=== PATIENT | male | born 1985 | race Caucasian/White ===

== ENCOUNTER 2025-02-26 00:39 | Inpatient (IN) ==
[2025-02-26 01:39] LABS: Appearance Urine Clear (Clear); Bacteria Urine Automated None Seen (None Seen); Cast Urine Automated 0-2 /lpf (0-2); Glucose Urine UA Negative (Negative); RBC Urine Automated 0-2 /hpf (0-2); WBC Urine Automated 21-50 /hpf (0-5)
[2025-02-26 01:52] LABS: Hematocrit (blood only) 40.2 % (42.0-52.0); Hemoglobin 14.0 g/dl (14.0-18.0); Immature Granulocytes # (auto) 0.05 K/uL (0.01-0.20); Immature Granulocytes % (auto) 0.8 %; Mean Corpuscular Hemoglobin 30.0 pg (25.0-34.0); Mean Corpuscular Volume 86.1 fL (80.0-100.0); Platelet Count 158 K/uL (130-400); RDW Standard Deviation 43.4 fL (36.4-46.3); Red Blood Count 4.67 M/uL (4.70-6.10); White Blood Count 5.92 K/ul (4.8-10.8)
[2025-02-26 02:10] LABS: Alanine Aminotransferase 28.0 U/L (7-52); Albumin Globulin Ratio 1.0 (0.9-2); Alkaline Phosphatase 45.0 U/L (34-104); Anion Gap 12.0 (3-11); Bilirubin,Total 1.6 mg/dl (0.2-1.0); Blood Urea Nitrogen 11.0 mg/dl (6-23); Calcium 9.0 mg/dl (8.6-10.3); Carbon Dioxide 24.0 mmol/L (21-32); Chloride 99.0 mmol/L (98-107); Creatinine Clr Calc Pharmacy 132.5 ml/min; Globulin 3.8 gm/dl (2.5-4.0); Glucose 104.0 mg/dl (70-99(Fasting)); Potassium 3.2 mmol/L (3.5-5.1); Sodium 135.0 mmol/L (136-145); Total Protein 7.5 gm/dl (6.0-8.3)
--- NOTE | 2025-02-26 02:12 | Emergency Department Note ---
Impression & Plan Suicide attempt, Depression with suicidal ideation ED Provider Note NAME: JORDEN DECKER AGE: 40 SEX: M : 1985 ARRIVES VIA: Walk-In INFORMANT: Patient, ED PROVIDER(S): Cierra Villatoro MD CHIEF COMPLAINT: Suicidal ideation HPI: This is a 40-year-old male present for suicidal ideation. Patient states that he felt hopeless and has had depression. He went through a break-up recently and notes he noted to harm himself on Monday with taking half a bottle of Ambien as well as some trazodone. He notes he has 4 previous attempts at suicide. He notes that he has navigate life stressors in addition to this break-up. He reports being here voluntarily and want to get inpatient help. ROS: See above HPI for pertinent positives & negatives. A total of 10 systems reviewed and were otherwise negative. PAST MEDICAL HISTORY: See Below PAST SURGICAL HISTORY: See Below FAMILY HISTORY: See Below SOCIAL HISTORY: See Below HOME MEDICATIONS: See Below ALLERGIES: See Below VITALS: See Below PHYSICAL EXAMINATION: General: resting comfortably in no acute distress Head: Normocephalic and atraumatic Eyes: Normal inspection, extraocular muscles intact Ear, nose, throat: Normal external exam Neck: Normal range of motion Respiratory: speaking in full sentences, symmetric chest rise, no respiratory distress Cardiovascular: Regular rate/rhythm GI: Ostomy in place Extremities: moves all extremities Neuro: The patient awake and alert, appropriately conversive, symmetric faces, no focal deficits MEDICAL DECISION MAKING: This is a 40-year-old male presented for suicidal ideation. Patient states he took Ambien and trazodone, 3 days ago. Will check coingestions otherwise. Patient voluntarily here, willing to do 201. - Will do screening blood work to assess for medical clearance. -Patient care signed oncoming physician pending bed search. Differential diagnosis: Psychosis, SI, depression Past Med/Surg History Problem List (Updated 03/03/25 @ 06:38 by Cierra Villatoro MD) Depression with suicidal ideation (Acute) Bipolar I disorder with depression Suicide attempt (Acute) Altered bowel elimination due to intestinal ostomy Medical History (Updated 03/03/25 @ 06:38 by Cierra Villatoro MD) Hernia, hiatal Gastritis GERD (gastroesophageal reflux disease) Genital HSV Hirschsprung's disease Social History Smoking Status: Never smoker Tobacco Type: Cigarettes Preferred Language: Palauan Communication Ability: Effective Automatic [employer] Required: No Beliefs That Will Affect Care: None Feels Safe at Home: Yes Gender Identity: Male Assistive Devices: None Allergies Allergies Allergy/AdvReac Type Severity Reaction Status Date / Time No Known Allergies Allergy Verified 10/22/24 19:26 Home Meds Home Medications Medication Instructions Recorded Confirmed aripiprazole 10 mg tablet 10 mg PO DAILY 10/22/24 02/26/25 famotidine 20 mg tablet 20 mg PO DAILY 10/22/24 02/26/25 pantoprazole 40 mg tablet,delayed 40 mg PO DAILY 10/22/24 02/26/25 release valacyclovir 1 gram tablet 1 mg PO 1XD 10/22/24 02/26/25 divalproex 500 mg tablet,delayed 500 mg PO BID 01/20/25 02/26/25 release trazodone 100 mg tablet 100 mg PO HS 01/20/25 02/26/25 Results & Data (ED) Vital Signs Vital Signs - 24 hr 02/26/25 00:48 Temperature 36.7 C Temperature Source Temporal Artery Scan Pulse Rate 93 H Pulse Rhythm Regular Pulse Strength Normal Respiratory Rate 18 Respiratory Effort / Characteristics Non-Labored Spontaneous Respiratory Depth Normal Respiratory Pattern Regular Blood Pressure 164/94 H Blood Pressure Mean 117 Blood Pressure Position Sitting Pulse Oximetry 97 Oxygen Delivery Method Room Air Sepsis Recent Fever Within 48 Hours No Sepsis New/Unexplained Change in Mental Status N/A Sepsis Action Taken by Nursing No Action Required Laboratory Data 02/26/25 01:28 02/26/25 01:28 Lab Results 02/26/25 02/26/25 Range/Units 01:03 01:28 WBC 5.92 (4.8-10.8) K/ul RBC 4.67 L (4.70-6.10) M/uL Hgb 14.0 (14.0-18.0) g/dl Hct 40.2 L (42.0-52.0) % MCV 86.1 (80.0-100.0) fL MCH 30.0 (25.0-34.0) pg MCHC 34.8 (32.0-36.0) g/dL RDW Std Deviation 43.4 (36.4-46.3) fL RDW Coeff of Alex 14.1 (11.5-14.5) % Plt Count 158 (130-400) K/uL MPV 10.3 (9.4-12.4) fL Immature Gran % (Auto) 0.8 % Neut % (Auto) 59.6 % Lymph % (Auto) 25.8 % Lea % (Auto) 11.8 % Eos % (Auto) 1.5 % Baso % (Auto) 0.5 % Neut # (Auto) 3.52 (1.40-6.50) K/uL Lymph # (Auto) 1.53 (1.20-3.40) K/uL Lea # (Auto) 0.70 H (0.11-0.59) K/uL Eos # (Auto) 0.09 (0.00-0.50) K/uL Baso # (Auto) 0.03 (0.00-0.20) K/uL Immature Gran # (Auto) 0.05 (0.01-0.20) K/uL Sodium 135 L (136-145) mmol/L Potassium 3.2 L (3.5-5.1) mmol/L Chloride 99 (98-107) mmol/L Carbon Dioxide 24 (21-32) mmol/L Anion Gap 12 H (3-11) BUN 11 (6-23) mg/dl Creatinine 0.91 (0.6-1.4) mg/dl Est Cr Clr Drug Dosing 132.5 ml/min eGFR 108.59 BUN/Creatinine Ratio 12.1 (10-20) Glucose 104 H (70-99(Fasting)) mg/dl Calcium 9.0 (8.6-10.3) mg/dl Total Bilirubin 1.6 H (0.2-1.0) mg/dl AST 20 (13-39) U/L ALT 28 (7-52) U/L Alkaline Phosphatase 45 (34-104) U/L Total Protein 7.5 (6.0-8.3) gm/dl Albumin 3.7 (3.4-5.0) gm/dl Globulin 3.8 (2.5-4.0) gm/dl Albumin/Globulin Ratio 1.0 (0.9-2) TSH 2.888 (0.300-4.500) uIu/ml Urine Color Yellow Urine Appearance Clear (Clear) Urine pH 6.0 (4.5-7.5) Ur Specific [place] 1.028 (1.000-1.030) Urine Protein 1+ H (Negative) Urine Glucose (UA) Negative (Negative) Urine Ketones Trace H (Negative) Urine Blood Negative (Negative) Urine Nitrite Negative (Negative) Urine Bilirubin Negative (Negative) Urine Urobilinogen Negative (Negative) Ur Leukocyte Esterase 1+ H (Negative) Urine WBC (Auto) 21-50 H (0-5) /hpf Urine RBC (Auto) 0-2 (0-2) /hpf U Hyaline Cast (Auto) 0-2 (0-2) /lpf U Epithel Cells (Auto) 3-5 H (0-2) /hpf Urine Bacteria (Auto) None Seen (None Seen) Urine Mucus Present A (None Prsent) Urine Comment Salicylates < 3.0 L (3.0-30) mg/dl Urine Opiates Screen Neg (Neg) Ur Methadone, Qual Neg (Neg) Urine Fentanyl Screen Neg (Neg) Acetaminophen < 3 L (10-30) ug/ml Urine Barbiturates Neg (Neg) Ur Phencyclidine (PCP) Neg (Neg) U Amphetamin/Meth Scrn Neg (Neg) Urine MDEA negative MDMA (Ecstasy) Screen Pos H (Neg) MDMA negative Urine MDMA negative U Benzodiazepines Scrn Neg (Neg) Ur Cocaine Metabolite Neg (Neg) U Marijuana (THC) Screen Neg (Neg) Ethyl Alcohol mg/dL < 10.0 (<10.0) mg/dl SARS-CoV-2, RNA, NAAT NEGATIVE (NEGATIVE) Administered Medications Acetaminophen (Acetaminophen 325 Mg Tab) 650 mg PO Q4H PRN PRN Reason: Headache or Minor Fever Stop: 03/28/25 10:37 Last Admin: 02/28/25 11:49 Dose: 650 mg Documented By: Admin: 02/28/25 03:11 Dose: 650 mg Documented By: Admin: 02/27/25 16:09 Dose: 650 mg Documented By: Admin: 02/26/25 12:56 Dose: 650 mg Documented By: MICHELLE Al Hydrox/Mg Hydrox/Simethicone (Aluminum/Magnesium Susp 30 Ml Udc) 30 ml PO Q4H PRN PRN Reason: GI Upset Stop: 03/28/25 10:37 Last Admin: 02/27/25 06:04 Dose: 30 ml Documented By: RAYO Aripiprazole (Aripiprazole 10 Mg Tab) 10 mg PO DAILY DAVID Stop: 03/28/25 08:59 Last Admin: 03/02/25 08:28 Dose: 10 mg Documented By: Admin: 03/01/25 08:03 Dose: 10 mg Documented By: Admin: 02/28/25 08:39 Dose: 10 mg Documented By: Admin: 02/27/25 08:38 Dose: 10 mg Documented By: [id number] Admin: 02/26/25 08:58 Dose: 10 mg Documented By: STEPHANIE Bismuth Subsalicylate (Bismuth Subsalicylate 262 Mg Chew) 2 tab PO Q30M PRN PRN Reason: Loose Stool/Diarrhea Stop: 03/28/25 10:37 Last Admin: 03/02/25 12:21 Dose: 2 tab Documented By: Admin: 03/01/25 09:53 Dose: 2 tab Documented By: FRANKIE Bupropion HCl (Bupropion Hcl 75 Mg Tablet) 150 mg PO DAILY DAVID Stop: 03/31/25 08:59 Last Admin: 03/02/25 08:29 Dose: 150 mg Documented By: Admin: 03/01/25 08:04 Dose: 150 mg Documented By: BNE Divalproex Sodium (Divalproex Delay Release 500 Mg Tab) 500 mg PO DAILY DAVID Stop: 03/31/25 08:59 Last Admin: 03/02/25 08:28 Dose: 500 mg Documented By: Admin: 03/01/25 08:04 Dose: 500 mg Documented By: BNE Divalproex Sodium (Divalproex Delay Release 250 Mg Tabec) 750 mg PO HS DAVID Stop: 03/30/25 21:59 Last Admin: 03/02/25 20:41 Dose: 750 mg Documented By: Admin: 03/01/25 20:49 Dose: 750 mg Documented By: Admin: 02/28/25 20:13 Dose: 750 mg Documented By: SERGIO Famotidine (Famotidine 20 Mg Tab) 20 mg PO DAILY DAVID Stop: 03/29/25 08:59 Last Admin: 03/02/25 08:28 Dose: 20 mg Documented By: Admin: 03/01/25 06:46 Dose: 20 mg Documented By: Admin: 02/28/25 06:29 Dose: 20 mg Documented By: Admin: 02/27/25 08:38 Dose: 20 mg Documented By: [id number] Hydroxyzine HCl (Hydroxyzine Hcl 25 Mg Tab) 50 mg PO HS DAVID Stop: 03/30/25 21:59 Last Admin: 03/02/25 20:41 Dose: 50 mg Documented By: Admin: 03/01/25 20:49 Dose: 50 mg Documented By: Admin: 02/28/25 20:09 Dose: 50 mg Documented By: SERGIO Melatonin (Melatonin 3 Mg Tab) 3 mg PO HS PRN PRN Reason: Sleep Stop: 03/28/25 03:25 Last Admin: 02/26/25 04:02 Dose: 3 mg Documented By: JADA Ondansetron HCl (Ondansetron 2 Mg Od Tab) 2 mg PO Q6H PRN PRN Reason: Nausea And Vomiting Stop: 03/29/25 09:16 Last Admin: 03/01/25 19:54 Dose: 2 mg Documented By: Admin: 02/27/25 18:25 Dose: 2 mg Documented By: Admin: 02/27/25 09:35 Dose: 2 mg Documented By: [id number] Pantoprazole Sodium (Pantoprazole 40 Mg Tab) 40 mg PO QAM DAVID Stop: 03/28/25 08:59 Last Admin: 03/02/25 07:24 Dose: 40 mg Documented By: Admin: 03/01/25 06:46 Dose: 40 mg Documented By: Admin: 02/28/25 06:29 Dose: 40 mg Documented By: Admin: 02/27/25 08:40 Dose: 40 mg Documented By: [id number] Admin: 02/26/25 07:35 Dose: 40 mg Documented By: STEPHANIE Valacyclovir HCl (Valacyclovir Hcl 500 Mg Tablet) 1,000 mg PO DAILY DAVID Stop: 03/29/25 08:59 Last Admin: 03/02/25 08:27 Dose: 1,000 mg Documented By: Admin: 03/01/25 08:04 Dose: 1,000 mg Documented By: Admin: 02/28/25 08:39 Dose: 1,000 mg Documented By: Admin: 02/27/25 08:59 Dose: 1,000 mg Documented By: [id number] Discontinued Medications Bupropion HCl (Bupropion Hcl 100 Mg Tablet) 100 mg PO [id number] DAVID Stop: 03/29/25 06:59 Last Admin: 02/28/25 06:29 Dose: 100 mg Documented By: Admin: 02/27/25 14:01 Dose: 100 mg Documented By: [id number] Admin: 02/27/25 06:04 Dose: 100 mg Documented By: RAYO Divalproex Sodium (Divalproex Delay Release 500 Mg Tab) 500 mg PO BID DAVID Stop: 03/28/25 08:59 Last Admin: 02/28/25 08:39 Dose: 500 mg Documented By: Admin: 02/27/25 20:51 Dose: 500 mg Documented By: Admin: 02/27/25 08:40 Dose: 500 mg Documented By: [id number] Admin: 02/26/25 20:34 Dose: 500 mg Documented By: Admin: 02/26/25 08:58 Dose: 500 mg Documented By: STEPHANIE Pantoprazole Sodium (Pantoprazole 40 Mg Tab) Confirm Administered Dose 40 mg .ROUTE .STK-MED ONE Stop: 02/26/25 07:35 Last Admin: 02/26/25 07:36 Dose: Not Given Documented By: STEPHANIE Potassium Chloride (Potassium Chloride 10 Meq Tabcr) 20 meq PO NOW STA Stop: 02/26/25 08:35 Last Admin: 02/26/25 08:48 Dose: 20 meq Documented By: STEPHANIE Valacyclovir HCl (Valacyclovir Hcl 500 Mg Tablet) 1,000 mg PO NOW ONE Stop: 02/26/25 08:51 Last Admin: 02/26/25 08:57 Dose: 1,000 mg Documented By: STEPHANIE Discharge Plan Visit Data Chief Complaint: Mental Health Evaluation Stated Complaint: [facility] ED Provider: Lalit Marlow Discharge Problem: Suicide attempt, Depression with suicidal ideation Patient Disposition: Admitted As Inpatient Condition: Fair Discharge Instructions Interventions: ED Discharge Assessment Last Done: 02/26/25 10:47
[2025-02-26 02:25] LABS: Thyroid Stimulating Hormone 2.888 uIu/ml (0.300-4.500)
[2025-02-26 02:33] LABS: Amphetamines+Metham, Urine Neg (Neg); MDMA (Ecstacy), Urine Pos (Neg); Marijuana, Urine Neg (Neg)
[2025-02-26 02:33] LABS: Acetaminophen < 3 ug/ml (10-30); Salicylate < 3.0 mg/dl (3.0-30)
[2025-02-26] MEDS: MELATONIN 3 MG TAB PO PRN (04:02)
--- NOTE | 2025-02-26 07:15 | Emergency Department Note ---
ED Visit Note I received this patient at change of shift signout from Dr. Villatoro. Please see his note for overnight care. The patient is a 40-year-old male who presented to the emergency department for mental health evaluation. The patient had a recent suicidal gesture and an overdose. The patient was medically cleared in the emergency department. At this time he is agreeable to inpatient management. He is awaiting evaluation by [facility] to determine further disposition. Ultimately the patient was accepted for inpatient management on [facility] .
[2025-02-26] MEDS: POTASSIUM CHLORIDE 10 MEQ TABCR PO STA (08:48)
[2025-02-26] MEDS: DIVALPROEX DELAY RELEASE 500 MG TAB PO SCH (08:58)
[2025-02-26] MEDS ORDERED: SODIUM CHLORIDE 0.65% NA SOLN 45 ML (OCEAN) PRN (10:38)
[2025-02-26] MEDS ORDERED: MAGNESIUM HYDROXIDE SUSP 30 ML UDC PO PRN (10:38)
[2025-02-26] MEDS: ACETAMINOPHEN 325 MG TAB PO PRN (12:56)
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
[2025-02-26] MEDS ORDERED: SIMETHICONE 80 MG CHEW PO PRN (18:18)
[2025-02-26] MEDS ORDERED: DIVALPROEX DELAY RELEASE 500 MG TAB PO SCH (21:00)
[2025-02-27] MEDS: ALUMINUM/MAGNESIUM SUSP 30 ML UDC PO PRN (06:04)
[2025-02-27 08:34] LABS: Hemoglobin A1C 5.3 % (4.5-5.6)
[2025-02-27] MEDS: FAMOTIDINE 20 MG TAB PO SCH (08:38)
--- NOTE | 2025-02-27 08:49 | Psychiatric Progress Note ---
Date of Service February 27, 2025 Impression / Recommendations Impression JORDEN DECKER is a 40-year-old man who currently lives in [place] with his newly ex-girlfriend, and three of her friends has a history of Bipolar disorder, PTSD, and was admitted on 02/26/25 10:38 on a 201 voluntary commitment for worsening depression and suicide attempt via overdose. Diagnostically consistent with bipolar affective disorder current depressive episode and PTSD by history. A: Ongoing depression but some increased energy today after initial dose of Wellbutrin. Reviewed labwork notable for stable HbA1c and elevated TGs. At this point reasonable to continue Abilify but potentially could taper in the future if Wellbutrin is beneficial for mood and pending Depakote level as this could be reasonable as mood stabilizer for monotherapy. SW exploring CM referral. MNPR-ostomy care and hx of genital HSV Overall, I spent a total of 35 minutes on this case including meeting with the patient, reviewing the chart, nursing report, multidisciplinary team meeting, orders, and documentation. (1) Suicide attempt: (2) Bipolar I disorder with depression: (3) Hirschsprung's disease: (4) Hernia, hiatal: (5) Altered bowel elimination due to intestinal ostomy: Plan 02/27/2025: -Continue current medications and tx plan -Cage Loader consult placed -Zofran prn for nausea/vomiting 02/26/2025: The patient was admitted to the [facility] ([facility] mental health unit) on q15 min checks (behavioral with suicide precautions) for safety. The patient will participate in group, recreational, and milieu therapies and will be offered additional individual and family sessions as clinically appropriate. -start Wellbutrin IR 100mg qAM and qafternoon -Depakote DR 500mg BID (preferred over HS ER formulation due to ostomy) -Continue Abilify 10mg daily -Depakote level, HbA1c, lipid panel in the morning Inventory Assets Strengths: supportive relationships, willing to get treatment Needs: safety and stabilization, medication adjustment, additional coping skills, increased outpatient services Suicide Risk Level Suicide Risk Level: Moderate (q15 min suicide checks) (s/p serious suicide attempt but SI starting to lessen and feels safe in the hospital and feels able to ask for support) Risk Factors Assessment Male: Yes : Yes Do You Have Access To A Gun?: No Health Problems: Yes Mental Health Diagnoses: Yes Substance Use Disorders: No Previous Attempt: Yes Previous Psychiatric Hospitalization: Yes Hopelessness: No Protective Factors Assessment Employed: No Stable Relationships: No (new breakup) Supportive Family: Yes Good Rapport with Provider: Yes Interval History Identifying Information JORDEN DECKER is a 40-year-old man who currently lives in [place] with his newly ex-girlfriend, and three of her friends has a history of Bipolar disorder, PTSD, and was admitted on 02/26/25 10:38 on a 201 voluntary commitment for worsening depression and suicide attempt via overdose. Chief Complaint "I have more energy". Review of Systems Sleep Information Total Hours of Sleep: 7.5 Meal Information Percent Meal Consumed - Lunch: 100 Percent Meal Consumed - Dinner: 100 Subjective Subjective Patient was seen & assessed and interval progress reviewed with nursing and social work. Out of his room, attending groups, walking laps, showered. Reports improved energy and motivation this morning which he attributes to initial dose of Wellbutrin. Having increased nausea and vomiting episode this morning due to change in food in the hospital compared to home. He's agreeable to ship rigger consult and zofran prn. Feels his SI is "lessening". Physical Exam Psychiatric Orientation: alert and oriented x 3 Apperance: appropriately dressed and appropriately groomed Eye Contact: good eye contact Motor Behavior: no abnormal motor movements Speech: normal rate/rhythm/volume of speech Affect: + constricted affect Mood: + depressed mood Thought Process: linear/logical thought process and + concrete thought process Thought Content: reality based without delusions Suicidal Thoughts: denies suicidal plan and denies suicidal intent; + reports suicidal thoughts Homicidal Thoughts: denies homicidal thoughts Hallucinations: no auditory hallucinations and no visual hallucinations Cognition: recent memory grossly intact, remote memory grossly intact, attention grossly intact and language grossly intact Estimated Intelligence: consistent with education level Insight: + fair insight Judgment: + fair judgement Vital Signs (Past 24 Hours) Last Vital Signs Temp 36.4 C 02/27/25 06:26 Pulse 92 H 02/27/25 06:26 Resp 16 02/27/25 06:26 BP 151/89 H 02/27/25 06:26 Pulse Ox 95 02/27/25 06:26 O2 Del Method Room Air 02/27/25 06:26 Results & Data ([facility]) Laboratory Results Laboratory Results - last 24 hr 02/27/25 07:54 Estimat Average Glucose 105 Hemoglobin A1c 5.3 Triglycerides Pending Cholesterol Pending VLDL Cholesterol, Calc Pending HDL Cholesterol Pending Cholesterol/HDL Ratio Pending Valproic Acid Pending Current Inpatient Medications Current Inpatient Medications: Current Inpatient Medications Acetaminophen (Acetaminophen 325 Mg Tab) 650 mg PO Q4H PRN PRN Reason: Headache or Minor Fever Stop: 03/28/25 10:37 Last Admin: 02/26/25 12:56 Dose: 650 mg Al Hydrox/Mg Hydrox/Simethicone (Aluminum/Magnesium Susp 30 Ml Udc) 30 ml PO Q4H PRN PRN Reason: GI Upset Stop: 03/28/25 10:37 Last Admin: 02/27/25 06:04 Dose: 30 ml Aripiprazole (Aripiprazole 10 Mg Tab) 10 mg PO DAILY DAVID Stop: 03/28/25 08:59 Last Admin: 02/26/25 08:58 Dose: 10 mg Bismuth Subsalicylate (Bismuth Subsalicylate 262 Mg Chew) 2 tab PO Q30M PRN PRN Reason: Loose Stool/Diarrhea Stop: 03/28/25 10:37 Bupropion HCl (Bupropion Hcl 100 Mg Tablet) 100 mg PO [id number] DAVID Stop: 03/29/25 06:59 Last Admin: 02/27/25 06:04 Dose: 100 mg Divalproex Sodium (Divalproex Delay Release 500 Mg Tab) 500 mg PO BID DAVID Stop: 03/28/25 08:59 Last Admin: 02/26/25 20:34 Dose: 500 mg Famotidine (Famotidine 20 Mg Tab) 20 mg PO DAILY DAVID Stop: 03/29/25 08:59 Hydroxyzine HCl (Hydroxyzine Hcl 25 Mg Tab) 50 mg PO HSZ PRN PRN Reason: Insomnia Stop: 03/28/25 10:37 Hydroxyzine HCl (Hydroxyzine Hcl 25 Mg Tab) 25 mg PO Q4H PRN PRN Reason: Anxiety Stop: 03/28/25 10:37 Magnesium Hydroxide (Magnesium Hydroxide Susp 30 Ml Udc) 30 ml PO DAILY PRN PRN Reason: Constipation Stop: 03/28/25 10:37 Melatonin (Melatonin 3 Mg Tab) 3 mg PO HS PRN PRN Reason: Sleep Stop: 03/28/25 03:25 Last Admin: 02/26/25 04:02 Dose: 3 mg Pantoprazole Sodium (Pantoprazole 40 Mg Tab) 40 mg PO QAM DAVID Stop: 03/28/25 08:59 Last Admin: 02/26/25 07:35 Dose: 40 mg Simethicone (Simethicone 80 Mg Chew) 80 mg PO BID PRN PRN Reason: Flatulence Stop: 03/28/25 18:17 Sodium Chloride (Sodium Chloride 0.65% Na Soln 45 Ml ([place])) 1 - 2 sprays NA PRN PRN PRN Reason: Nasal Dryness/Congestion Stop: 03/28/25 10:37 Valacyclovir HCl (Valacyclovir Hcl 500 Mg Tablet) 1 mg PO DAILY DAVID Stop: 03/29/25 08:59 Mental Health & Subst Abuse Tx Therapist Name of Therapist: German Diane Fairmont Gold Attendant Name of [employer] Gold Attendant: NOEMY Post Discharge Appointments Primary Care Physician Name Of Family Doctor/PCP: [facility]
[2025-02-27 08:53] LABS: Cholesterol 98 mg/dl (0-200); HDL Cholesterol 40 mg/dl; Triglycerides 323 mg/dl (0-150)
[2025-02-27] MEDS: ONDANSETRON 2 MG OD TAB PO PRN (09:35)
--- NOTE | 2025-02-28 14:43 | Psychiatric Progress Note ---
Date of Service February 28, 2025 Impression / Recommendations Impression JORDEN DECKER is a 40-year-old man who currently lives in [place] with his newly ex-girlfriend, and three of her friends has a history of Bipolar disorder, PTSD, and was admitted on 02/26/25 10:38 on a 201 voluntary commitment for worsening depression and suicide attempt via overdose. Diagnostically consistent with bipolar affective disorder current depressive episode and PTSD by history. A: Patient presenting improved mood and function. Concern for bupropion impacting sleep quality. Reviewed medications and the patient cites improvement in depression with the Depakote. Recent VPA level was 65 with twice daily dosing and patient can tolerate higher dose of Depakote. Plan to start Vistaril for sleep and will avoid trazodone and Ambien given recent overdose. MNPR-ostomy care and hx of genital HSV Overall, I spent a total of 45 minutes on this case including meeting with the patient, reviewing the chart, nursing report, multidisciplinary team meeting, orders, and documentation. (1) Suicide attempt: (2) Bipolar I disorder with depression: (3) Hirschsprung's disease: (4) Hernia, hiatal: (5) Altered bowel elimination due to intestinal ostomy: Plan 02/28/2025: D/c Bupropion 100mg in afternoon, increase AM dose to 150mg Increase nightly depakote DR to 750mg Start Vistaril 50mg HS 02/27/2025: -Continue current medications and tx plan -Slack Line Yarder consult placed -Zofran prn for nausea/vomiting 02/26/2025: The patient was admitted to the [facility] ([facility] mental health unit) on q15 min checks (behavioral with suicide precautions) for safety. The patient will participate in group, recreational, and milieu therapies and will be offered additional individual and family sessions as clinically appropriate. -start Wellbutrin IR 100mg qAM and qafternoon -Depakote DR 500mg BID (preferred over HS ER formulation due to ostomy) -Continue Abilify 10mg daily -Depakote level, HbA1c, lipid panel in the morning Inventory Assets Strengths: supportive relationships, willing to get treatment Needs: safety and stabilization, medication adjustment, additional coping skills, increased outpatient services Suicide Risk Level Suicide Risk Level: Moderate (q15 min suicide checks) (s/p serious suicide attempt but SI starting to lessen and feels safe in the hospital and feels able to ask for support) Suicide Risk Level Comments: High-Moderate due to severe depression with SI with plan prior to admission but feels safe in the hospital, able to safety contract and agrees to let nursing/staff know should they develop plan, intent or feel unable to remain safe. Risk Factors Assessment Male: Yes : Yes Do You Have Access To A Gun?: No Health Problems: Yes Mental Health Diagnoses: Yes Substance Use Disorders: No Previous Attempt: Yes Previous Psychiatric Hospitalization: Yes Hopelessness: No Protective Factors Assessment Employed: No Stable Relationships: No (new breakup) Supportive Family: Yes Good Rapport with Provider: Yes Interval History Identifying Information JORDEN DECKER is a 40-year-old man who currently lives in [place] with his newly ex-girlfriend, and three of her friends has a history of Bipolar disorder, PTSD, and was admitted on 02/26/25 10:38 on a 201 voluntary commitment for worsening depression and suicide attempt via overdose. Chief Complaint "Bad break-up" Review of Systems Sleep Information Total Hours of Sleep: 6.5 Meal Information Percent Meal Consumed - Breakfast: 100 Percent Meal Consumed - Lunch: 100 Percent Meal Consumed - Dinner: 100 Subjective Subjective Patient was seen & assessed and interval progress reviewed with treatment team nursing and social work Patient reports having a difficult break-up with his girlfriend and after a particularly bad argument he went to sleep. He woke up at 2 AM distraught and restless. Took half a bottle of trazodone and some Ambien. Denies remembering how he felt at that moment or whether he was feeling suicidal. Here he denies feeling suicidal in the recent days prior and denies current suicidal ideation. Med history reviewed and he reports that Depakote has improved his mood. Reports past episode of waldemar 3 years ago which lasted for a week and put him in intermediate "they thought I was coked out". Mother with bipolar schizophrenia. Can return to live with her stepsister and they will give him a different room. Feels Wellbutrin is impacting his sleep however reports improvement with more energy and more concentration. Reports history of alcohol syndrome. Physical Exam Mental Examination Appearance: Well Groomed Eye Contact: Maintains Eye Contact Motor Behavior: Unremarkable Speech: Normal Mood: Euthymic Affect: Appropriate, Calm and Congruent Thought Process: Intact and Linear Thought Content: Intact Hallucinations: None Insight: Good Judgement: Good Vital Signs (Past 24 Hours) Last Vital Signs Temp 36.8 C 02/28/25 03:22 Pulse 85 02/28/25 03:24 Resp 18 02/28/25 03:22 BP 122/84 02/28/25 03:24 Pulse Ox 94 02/28/25 03:22 O2 Del Method Room Air 02/28/25 03:22 Results & Data ([facility]) Current Inpatient Medications Current Inpatient Medications: Current Inpatient Medications Acetaminophen (Acetaminophen 325 Mg Tab) 650 mg PO Q4H PRN PRN Reason: Headache or Minor Fever Stop: 03/28/25 10:37 Last Admin: 02/28/25 11:49 Dose: 650 mg Al Hydrox/Mg Hydrox/Simethicone (Aluminum/Magnesium Susp 30 Ml Udc) 30 ml PO Q4H PRN PRN Reason: GI Upset Stop: 03/28/25 10:37 Last Admin: 02/27/25 06:04 Dose: 30 ml Aripiprazole (Aripiprazole 10 Mg Tab) 10 mg PO DAILY DAVID Stop: 03/28/25 08:59 Last Admin: 02/28/25 08:39 Dose: 10 mg Bismuth Subsalicylate (Bismuth Subsalicylate 262 Mg Chew) 2 tab PO Q30M PRN PRN Reason: Loose Stool/Diarrhea Stop: 03/28/25 10:37 Bupropion HCl (Bupropion Hcl 75 Mg Tablet) 150 mg PO DAILY DAVID Stop: 03/31/25 08:59 Divalproex Sodium (Divalproex Delay Release 500 Mg Tab) 500 mg PO DAILY DAVID Stop: 03/31/25 08:59 Divalproex Sodium (Divalproex Delay Release 250 Mg Tabec) 750 mg PO HS DAVID Stop: 03/30/25 21:59 Famotidine (Famotidine 20 Mg Tab) 20 mg PO DAILY DAVID Stop: 03/29/25 08:59 Last Admin: 02/28/25 06:29 Dose: 20 mg Hydroxyzine HCl (Hydroxyzine Hcl 25 Mg Tab) 50 mg PO HSZ PRN PRN Reason: Insomnia Stop: 03/28/25 10:37 Hydroxyzine HCl (Hydroxyzine Hcl 25 Mg Tab) 25 mg PO Q4H PRN PRN Reason: Anxiety Stop: 03/28/25 10:37 Hydroxyzine HCl (Hydroxyzine Hcl 25 Mg Tab) 50 mg PO HS DAVID Stop: 03/30/25 21:59 Magnesium Hydroxide (Magnesium Hydroxide Susp 30 Ml Udc) 30 ml PO DAILY PRN PRN Reason: Constipation Stop: 03/28/25 10:37 Melatonin (Melatonin 3 Mg Tab) 3 mg PO HS PRN PRN Reason: Sleep Stop: 03/28/25 03:25 Last Admin: 02/26/25 04:02 Dose: 3 mg Ondansetron HCl (Ondansetron 2 Mg Od Tab) 2 mg PO Q6H PRN PRN Reason: Nausea And Vomiting Stop: 03/29/25 09:16 Last Admin: 02/27/25 18:25 Dose: 2 mg Pantoprazole Sodium (Pantoprazole 40 Mg Tab) 40 mg PO QAM DAVID Stop: 03/28/25 08:59 Last Admin: 02/28/25 06:29 Dose: 40 mg Simethicone (Simethicone 80 Mg Chew) 80 mg PO BID PRN PRN Reason: Flatulence Stop: 03/28/25 18:17 Sodium Chloride (Sodium Chloride 0.65% Na Soln 45 Ml ([place])) 1 - 2 sprays NA PRN PRN PRN Reason: Nasal Dryness/Congestion Stop: 03/28/25 10:37 Valacyclovir HCl (Valacyclovir Hcl 500 Mg Tablet) 1,000 mg PO DAILY DAVID Stop: 03/29/25 08:59 Last Admin: 02/28/25 08:39 Dose: 1,000 mg Mental Health & Subst Abuse Tx Psychiatrist Name of Psychiatrist: German Mcgovern Psychiatrist's Date Of Appointment With Psychiatric Provider: 03/10/25 Time of Appointment with Psychiatrist: 4:35PM Psychiatric Appointment Comment: Virtual, Link for video call will be sent via text message Therapist Name of Therapist: German Blanca Therapist's Date of Therapist Appointment: 03/06/25 Time of Therapist Appointment: 3PM Therapy Appointment Comment: Virtual, Link for video call will be sent via text message Video Journalist Name of Video Journalist: [employer] service unit Phone Number for Video Journalist: [phone] Post Discharge Appointments Primary Care Physician Name Of Family Doctor/PCP: [facility] - Dr Bart Freeman Primary Care Date of Future Appointment with PCP: 03/05/25 Time of Appointment with PCP: 1PM Provider Appointment Comment: Christopher Jones [place], [place] [id number] Contact Information Discharge Discharge Address: [address] [place] [address] [place]AKASH [address]
[2025-02-28] MEDS: DIVALPROEX DELAY RELEASE 250 MG TABEC PO SCH (20:13)
[2025-03-01] MEDS: DIVALPROEX DELAY RELEASE 500 MG TAB PO SCH (08:04)
[2025-03-01] MEDS ORDERED: BENZOCAINE/MENTHOL 18 LOZ/1 BOX MT PRN (09:17)
[2025-03-01] MEDS: BISMUTH SUBSALICYLATE 262 MG CHEW PO PRN (09:53)
--- NOTE | 2025-03-01 12:30 | Psychiatric Progress Note ---
Date of Service March 01, 2025 Impression / Recommendations Impression JORDEN DECKER is a 40-year-old man who currently lives in [place] with his newly ex-girlfriend, and three of her friends has a history of Bipolar disorder, PTSD, and was admitted on 02/26/25 10:38 on a 201 voluntary commitment for worsening depression and suicide attempt via overdose. Diagnostically consistent with bipolar affective disorder current depressive episode and PTSD by history. A: Patient is presenting stable behaviors, sleep, appetite. Continues to deny SI. Tolerating recent increase in Depakote and Wellbutrin dose. Complains of mild restlessness. MNPR-ostomy care and hx of genital HSV Overall, I spent a total of 45 minutes on this case including meeting with the patient, reviewing the chart, nursing report, multidisciplinary team meeting, orders, and documentation. (1) Suicide attempt: (2) Bipolar I disorder with depression: (3) Hirschsprung's disease: (4) Hernia, hiatal: (5) Altered bowel elimination due to intestinal ostomy: Plan 03/01/2025: Continue medications and treatment plan 02/28/2025: D/c Bupropion 100mg in afternoon, increase AM dose to 150mg Increase nightly depakote DR to 750mg Start Vistaril 50mg HS 02/27/2025: -Continue current medications and tx plan -Scaffold Worker consult placed -Zofran prn for nausea/vomiting 02/26/2025: The patient was admitted to the [facility] ([facility] mental health unit) on q15 min checks (behavioral with suicide precautions) for safety. The patient will participate in group, recreational, and milieu therapies and will be offered additional individual and family sessions as clinically appropriate. -start Wellbutrin IR 100mg qAM and qafternoon -Depakote DR 500mg BID (preferred over HS ER formulation due to ostomy) -Continue Abilify 10mg daily -Depakote level, HbA1c, lipid panel in the morning Inventory Assets Strengths: supportive relationships, willing to get treatment Needs: safety and stabilization, medication adjustment, additional coping skills, increased outpatient services Suicide Risk Level Suicide Risk Level: Moderate (q15 min suicide checks) (s/p serious suicide attempt but SI starting to lessen and feels safe in the hospital and feels able to ask for support) Suicide Risk Level Comments: High-Moderate due to severe depression with SI with plan prior to admission but feels safe in the hospital, able to safety contract and agrees to let nursing/staff know should they develop plan, intent or feel unable to remain safe. Risk Factors Assessment Male: Yes : Yes Do You Have Access To A Gun?: No Health Problems: Yes Mental Health Diagnoses: Yes Substance Use Disorders: No Previous Attempt: Yes Previous Psychiatric Hospitalization: Yes Hopelessness: No Protective Factors Assessment Employed: No Stable Relationships: No (new breakup) Supportive Family: Yes Good Rapport with Provider: Yes Interval History Identifying Information JORDEN DECKER is a 40-year-old man who currently lives in [place] with his newly ex-girlfriend, and three of her friends has a history of Bipolar disorder, PTSD, and was admitted on 02/26/25 10:38 on a 201 voluntary commitment for worsening depression and suicide attempt via overdose. Chief Complaint Suicide attempt, impulsivity Review of Systems Sleep Information Total Hours of Sleep: 7.5 Meal Information Percent Meal Consumed - Breakfast: 100 Percent Meal Consumed - Lunch: 100 Percent Meal Consumed - Dinner: 100 Subjective Subjective Patient was seen & assessed and interval progress reviewed with treatment team nursing and social work Overnight slept 7 hours. Attending groups and engaging in self-care. Had sleep difficulties overnight due to not having his CPAP. Today he denies SI. He reports trying to forgive his girlfriend so he can be at peace. Says his sister and friends are very supportive and can return back to living with them. Having some difficulty sitting still and says it is related to his ADD. Physical Exam Mental Examination Appearance: Well Groomed Eye Contact: Maintains Eye Contact Motor Behavior: Unremarkable Speech: Normal Mood: Euthymic Affect: Appropriate, Calm and Congruent Thought Process: Intact and Linear Thought Content: Intact Hallucinations: None Insight: Good Judgement: Good Vital Signs (Past 24 Hours) Last Vital Signs Temp 36.6 C 03/01/25 06:54 Pulse 86 03/01/25 06:55 Resp 18 03/01/25 06:54 BP 137/82 03/01/25 06:55 Pulse Ox 94 02/28/25 03:22 O2 Del Method Room Air 02/28/25 03:22 Results & Data (U) Current Inpatient Medications Current Inpatient Medications: Current Inpatient Medications Acetaminophen (Acetaminophen 325 Mg Tab) 650 mg PO Q4H PRN PRN Reason: Headache or Minor Fever Stop: 03/28/25 10:37 Last Admin: 02/28/25 11:49 Dose: 650 mg Al Hydrox/Mg Hydrox/Simethicone (Aluminum/Magnesium Susp 30 Ml Udc) 30 ml PO Q4H PRN PRN Reason: GI Upset Stop: 03/28/25 10:37 Last Admin: 02/27/25 06:04 Dose: 30 ml Aripiprazole (Aripiprazole 10 Mg Tab) 10 mg PO DAILY DAVID Stop: 03/28/25 08:59 Last Admin: 03/01/25 08:03 Dose: 10 mg Benzocaine (Benzocaine/Menthol 18 Ml/1 Box) 1 ml MT Q2H PRN PRN Reason: throat irritation Stop: 03/31/25 09:16 Bismuth Subsalicylate (Bismuth Subsalicylate 262 Mg Chew) 2 tab PO Q30M PRN PRN Reason: Loose Stool/Diarrhea Stop: 03/28/25 10:37 Last Admin: 03/01/25 09:53 Dose: 2 tab Bupropion HCl (Bupropion Hcl 75 Mg Tablet) 150 mg PO DAILY DAVID Stop: 03/31/25 08:59 Last Admin: 03/01/25 08:04 Dose: 150 mg Divalproex Sodium (Divalproex Delay Release 500 Mg Tab) 500 mg PO DAILY DAVID Stop: 03/31/25 08:59 Last Admin: 03/01/25 08:04 Dose: 500 mg Divalproex Sodium (Divalproex Delay Release 250 Mg Tabec) 750 mg PO HS DAVID Stop: 03/30/25 21:59 Last Admin: 02/28/25 20:13 Dose: 750 mg Famotidine (Famotidine 20 Mg Tab) 20 mg PO DAILY DAVID Stop: 03/29/25 08:59 Last Admin: 03/01/25 06:46 Dose: 20 mg Hydroxyzine HCl (Hydroxyzine Hcl 25 Mg Tab) 50 mg PO HSZ PRN PRN Reason: Insomnia Stop: 03/28/25 10:37 Hydroxyzine HCl (Hydroxyzine Hcl 25 Mg Tab) 25 mg PO Q4H PRN PRN Reason: Anxiety Stop: 03/28/25 10:37 Hydroxyzine HCl (Hydroxyzine Hcl 25 Mg Tab) 50 mg PO HS DAVID Stop: 03/30/25 21:59 Last Admin: 02/28/25 20:09 Dose: 50 mg Magnesium Hydroxide (Magnesium Hydroxide Susp 30 Ml Udc) 30 ml PO DAILY PRN PRN Reason: Constipation Stop: 03/28/25 10:37 Melatonin (Melatonin 3 Mg Tab) 3 mg PO HS PRN PRN Reason: Sleep Stop: 03/28/25 03:25 Last Admin: 02/26/25 04:02 Dose: 3 mg Ondansetron HCl (Ondansetron 2 Mg Od Tab) 2 mg PO Q6H PRN PRN Reason: Nausea And Vomiting Stop: 03/29/25 09:16 Last Admin: 02/27/25 18:25 Dose: 2 mg Pantoprazole Sodium (Pantoprazole 40 Mg Tab) 40 mg PO QAM DAVID Stop: 03/28/25 08:59 Last Admin: 03/01/25 06:46 Dose: 40 mg Simethicone (Simethicone 80 Mg Chew) 80 mg PO BID PRN PRN Reason: Flatulence Stop: 03/28/25 18:17 Sodium Chloride (Sodium Chloride 0.65% Na Soln 45 Ml ([place])) 1 - 2 sprays NA PRN PRN PRN Reason: Nasal Dryness/Congestion Stop: 03/28/25 10:37 Valacyclovir HCl (Valacyclovir Hcl 500 Mg Tablet) 1,000 mg PO DAILY DAVID Stop: 03/29/25 08:59 Last Admin: 03/01/25 08:04 Dose: 1,000 mg Mental Health & Subst Abuse Tx Psychiatrist Name of Psychiatrist: German Mcgovern Psychiatrist's Date Of Appointment With Psychiatric Provider: 03/10/25 Time of Appointment with Psychiatrist: 4:35PM Psychiatric Appointment Comment: Virtual, Link for video call will be sent via text message Therapist Name of Therapist: German Blanca Therapist's Date of Therapist Appointment: 03/06/25 Time of Therapist Appointment: 3PM Therapy Appointment Comment: Virtual, Link for video call will be sent via text message [employer] Name of [employer]: [employer] service [employer] Phone Number for [employer]: [phone] Post Discharge Appointments Primary Care Physician Name Of Family Doctor/PCP: [facility] - Dr Bart Freeman Primary Care Date of Future Appointment with PCP: 03/05/25 Time of Appointment with PCP: 1PM Provider Appointment Comment: Christopher Jones, [place], [place] [id number] Contact Information Discharge Discharge Address: [address] [place] [address] [place] [address]
[2025-03-01 13:51] LABS: MDA negative; MDEA negative; MDMA (Ecstasy) Urine, Confirm negative
--- NOTE | 2025-03-02 12:48 | Psychiatric Progress Note ---
Date of Service March 02, 2025 Impression / Recommendations Impression JORDEN DECKER is a 40-year-old man who currently lives in [place] with his newly ex-girlfriend, and three of her friends has a history of Bipolar disorder, PTSD, and was admitted on 02/26/25 10:38 on a 201 voluntary commitment for worsening depression and suicide attempt via overdose. Diagnostically consistent with bipolar affective disorder current depressive episode and PTSD by history. A: Patient is presenting stable behaviors, sleep, appetite. Continues to deny SI. Tolerating recent increase in Depakote and Wellbutrin dose. MNPR-ostomy care and hx of genital HSV Overall, I spent a total of 35 minutes on this case including meeting with the patient, reviewing the chart, nursing report, multidisciplinary team meeting, orders, and documentation. (1) Suicide attempt: (2) Bipolar I disorder with depression: (3) Hirschsprung's disease: (4) Hernia, hiatal: (5) Altered bowel elimination due to intestinal ostomy: Plan 03/02/2025: Continue medications and treatment plan 03/01/2025: Continue medications and treatment plan 02/28/2025: D/c Bupropion 100mg in afternoon, increase AM dose to 150mg Increase nightly depakote DR to 750mg Start Vistaril 50mg HS 02/27/2025: -Continue current medications and tx plan -Workflow Developer consult placed -Zofran prn for nausea/vomiting 02/26/2025: The patient was admitted to the [facility] ([facility] mental [facility] unit) on q15 min checks (behavioral with suicide precautions) for safety. The patient will participate in group, recreational, and milieu therapies and will be offered additional individual and family sessions as clinically appropriate. -start Wellbutrin IR 100mg qAM and qafternoon -Depakote DR 500mg BID (preferred over HS ER formulation due to ostomy) -Continue Abilify 10mg daily -Depakote level, HbA1c, lipid panel in the morning Inventory Assets Strengths: supportive relationships, willing to get treatment Needs: safety and stabilization, medication adjustment, additional coping skills, increased outpatient services Suicide Risk Level Suicide Risk Level: Moderate (q15 min suicide checks) (s/p serious suicide attempt but SI starting to lessen and feels safe in the hospital and feels able to ask for support) Suicide Risk Level Comments: High-Moderate due to severe depression with SI with plan prior to admission but feels safe in the hospital, able to safety contract and agrees to let nursing/staff know should they develop plan, intent or feel unable to remain safe. Risk Factors Assessment Male: Yes : Yes Do You Have Access To A Gun?: No Health Problems: Yes Mental Health Diagnoses: Yes Substance Use Disorders: No Previous Attempt: Yes Previous Psychiatric Hospitalization: Yes Hopelessness: No Protective Factors Assessment Employed: No Stable Relationships: No (new breakup) Supportive Family: Yes Good Rapport with Provider: Yes Interval History Identifying Information JORDEN DECKER is a 40-year-old man who currently lives in [place] with his newly ex-girlfriend, and three of her friends has a history of Bipolar disorder, PTSD, and was admitted on 02/26/25 10:38 on a 201 voluntary commitment for worsening depression and suicide attempt via overdose. Chief Complaint Suicide attempt, impulsivity Review of Systems Sleep Information Total Hours of Sleep: 8.25 Meal Information Percent Meal Consumed - Breakfast: 100 Percent Meal Consumed - Lunch: 100 Percent Meal Consumed - Dinner: 100 Subjective Subjective Patient was seen & assessed and interval progress reviewed with treatment team nursing and social work Overnight slept 8.25 hours. Had bowel movement. No nausea or vomiting reported. Engaging in good self care. On interview he denies SI. Reports sleeping well and feels rested. Says that he feels more sedated this morning because he took his nighttime meds late. Denies GI distress. Denies further concerns. Physical Exam Mental Examination Appearance: Well Groomed Eye Contact: Maintains Eye Contact Motor Behavior: Unremarkable Speech: Normal Mood: Euthymic Affect: Appropriate, Calm and Congruent Thought Process: Intact and Linear Thought Content: Intact Hallucinations: None Insight: Good Judgement: Good Vital Signs (Past 24 Hours) Last Vital Signs Temp 36.8 C 03/02/25 06:20 Pulse 80 03/02/25 06:20 Resp 16 03/02/25 06:20 BP 131/81 03/02/25 06:20 Pulse Ox 94 02/28/25 03:22 O2 Del Method Room Air 02/28/25 03:22 Results & Data ([facility]) Laboratory Results Laboratory Results - last 24 hr 02/26/25 01:03 Urine MDEA negative MDMA negative Urine MDMA negative Current Inpatient Medications Current Inpatient Medications: Current Inpatient Medications Acetaminophen (Acetaminophen 325 Mg Tab) 650 mg PO Q4H PRN PRN Reason: Headache or Minor Fever Stop: 03/28/25 10:37 Last Admin: 02/28/25 11:49 Dose: 650 mg Al Hydrox/Mg Hydrox/Simethicone (Aluminum/Magnesium Susp 30 Ml Udc) 30 ml PO Q4H PRN PRN Reason: GI Upset Stop: 03/28/25 10:37 Last Admin: 02/27/25 06:04 Dose: 30 ml Aripiprazole (Aripiprazole 10 Mg Tab) 10 mg PO DAILY DAVID Stop: 03/28/25 08:59 Last Admin: 03/02/25 08:28 Dose: 10 mg Benzocaine (Benzocaine/Menthol 18 Ml/1 Box) 1 ml MT Q2H PRN PRN Reason: throat irritation Stop: 03/31/25 09:16 Bismuth Subsalicylate (Bismuth Subsalicylate 262 Mg Chew) 2 tab PO Q30M PRN PRN Reason: Loose Stool/Diarrhea Stop: 03/28/25 10:37 Last Admin: 03/02/25 12:21 Dose: 2 tab Bupropion HCl (Bupropion Hcl 75 Mg Tablet) 150 mg PO DAILY DAVID Stop: 03/31/25 08:59 Last Admin: 03/02/25 08:29 Dose: 150 mg Divalproex Sodium (Divalproex Delay Release 500 Mg Tab) 500 mg PO DAILY DAVID Stop: 03/31/25 08:59 Last Admin: 03/02/25 08:28 Dose: 500 mg Divalproex Sodium (Divalproex Delay Release 250 Mg Tabec) 750 mg PO HS DAVID Stop: 03/30/25 21:59 Last Admin: 03/01/25 20:49 Dose: 750 mg Famotidine (Famotidine 20 Mg Tab) 20 mg PO DAILY DAVID Stop: 03/29/25 08:59 Last Admin: 03/02/25 08:28 Dose: 20 mg Hydroxyzine HCl (Hydroxyzine Hcl 25 Mg Tab) 50 mg PO HSZ PRN PRN Reason: Insomnia Stop: 03/28/25 10:37 Hydroxyzine HCl (Hydroxyzine Hcl 25 Mg Tab) 25 mg PO Q4H PRN PRN Reason: Anxiety Stop: 03/28/25 10:37 Hydroxyzine HCl (Hydroxyzine Hcl 25 Mg Tab) 50 mg PO HS DAVID Stop: 03/30/25 21:59 Last Admin: 03/01/25 20:49 Dose: 50 mg Magnesium Hydroxide (Magnesium Hydroxide Susp 30 Ml Udc) 30 ml PO DAILY PRN PRN Reason: Constipation Stop: 03/28/25 10:37 Melatonin (Melatonin 3 Mg Tab) 3 mg PO HS PRN PRN Reason: Sleep Stop: 03/28/25 03:25 Last Admin: 02/26/25 04:02 Dose: 3 mg Ondansetron HCl (Ondansetron 2 Mg Od Tab) 2 mg PO Q6H PRN PRN Reason: Nausea And Vomiting Stop: 03/29/25 09:16 Last Admin: 03/01/25 19:54 Dose: 2 mg Pantoprazole Sodium (Pantoprazole 40 Mg Tab) 40 mg PO QAM DAVID Stop: 03/28/25 08:59 Last Admin: 03/02/25 07:24 Dose: 40 mg Simethicone (Simethicone 80 Mg Chew) 80 mg PO BID PRN PRN Reason: Flatulence Stop: 03/28/25 18:17 Sodium Chloride (Sodium Chloride 0.65% Na Soln 45 Ml ([place])) 1 - 2 sprays NA PRN PRN PRN Reason: Nasal Dryness/Congestion Stop: 03/28/25 10:37 Valacyclovir HCl (Valacyclovir Hcl 500 Mg Tablet) 1,000 mg PO DAILY DAVID Stop: 03/29/25 08:59 Last Admin: 03/02/25 08:27 Dose: 1,000 mg Mental Health & Subst Abuse Tx Psychiatrist Name of Psychiatrist: German Mcgovern Psychiatrist's Date Of Appointment With Psychiatric Provider: 03/10/25 Time of Appointment with Psychiatrist: 4:35PM Psychiatric Appointment Comment: Virtual, Link for video call will be sent via text message Therapist Name of Therapist: German Blanca Therapist's Date of Therapist Appointment: 03/06/25 Time of Therapist Appointment: 3PM Therapy Appointment Comment: Virtual, Link for video call will be sent via text message Elementary School Tutor Name of Elementary School Tutor: Base service unit Phone Number for Elementary School Tutor: [phone] Post Discharge Appointments Primary Care Physician Name Of Family Doctor/PCP: Kwan [facility] - Dr Bart Freeman Primary Care Date of Future Appointment with PCP: 03/05/25 Time of Appointment with PCP: 1PM Provider Appointment Comment: Christopher Jones [place], [place] [id number] Contact Information Discharge Discharge Address: [address] [place] [address] Sams[place] PRAKASH [id number]
--- NOTE | 2025-03-03 10:18 | Discharge Summary ---
Date of Service March 03, 2025 History of Present Illness He presents for psychiatric admission for worsening depression and suicide attempt via overdose of trazodone and Ambien in the context of multiple psychosocial stressors including relationship difficulty. He was planning to purpose to her in March but they broke up yesterday morning after he confronted her about some concerns and she lied to him. He spent two days with his girlfriend "bit*gabriele at me" and "she wouldn't let up" and this stress started to accumulate to the point he was overwhelmed. He describes the attempt on Monday, three days ago, as impulsive because he felt trapped and couldn't drive to leave the house so he felt like his only way out was to by suicide. At about 2am on Monday morning he took the overdose and didn't talk to anyone about it until he got ahold of his counselor on Monday. He thought he would go to sleep "and never wake up" and recalls "feeling empty" after surviving the attempt. Spoke with his counselor on Monday who recommended he come right to the hospital but Slava reports he put this off by a few days because "there was stuff I gave my word I would take care of" including lawn work. After he got these tasks completed he came to the hospital last night. He endorses some depression prior to their arguments this weekend but he feels it was "manageable". Hasn't been eating well, sleeping too much, anxiety and pacing around. He endorses depressive symptoms including anhedonia, decreased motivation, self-guilt, helplessness, decreased energy, decreased appetite, and increased sleep. SI occurs infrequently though he notes "I have the thoughts more than I have the plan most of the time". He used to have panic attacks but denies current anxiety symptoms. He is currently prescribed psychiatric medications of: Ambien, Abilify, Depakote and trazodone. Psychiatric ROS notable for history of waldemar. No current nor history of symptoms of psychosis, PTSD, OCD nor eating disorder. Physical Exam Mental Examination Appearance: Well Groomed Eye Contact: Maintains Eye Contact Motor Behavior: Unremarkable Speech: Normal Mood: Euthymic Affect: Appropriate, Calm and Congruent Thought Process: Intact and Linear Thought Content: Intact Hallucinations: None Insight: Good Judgement: Good Vital Signs (Past 24 Hours) Last Vital Signs Temp 36.6 C 03/03/25 06:18 Pulse 82 03/03/25 06:19 Resp 16 03/03/25 06:18 BP 137/82 03/03/25 06:19 Pulse Ox 94 02/28/25 03:22 O2 Del Method Room Air 02/28/25 03:22 Principal Diagnosis Bipolar 1 Disorder with depression Psychiatric Data See daily stay summary. In short, safety was maintained and the patient was cooperative with care. He presented with an impulsive overdose of Trazodone and Zolpidem in the context of escalating relationship stressors with girlfriend who he lives with. Upon admission he denied suicidal ideation and continued to deny SI throughout the hospitalization. He was unable to recall specific details of why he overdosed other than being in a distressed state due to on-going relationship arguments and conflicts. He has a ostomy and presented good self care related to this. He presents a history of bipolar 1 disorder with last waldemar 2-3 years ago and recently struggling with depression symptoms. Was switched from [place] to Depakote in October of this year at outside hospital ([facility]) and cites significant benefit. Medication changes included increasing depakote to 500mg QAM, 750mg HS given past efficacy for bipolar depression and after levels were checked, starting Bupropion IR 150mg in the AM for apathy, low energy, low daily motivation and they tolerated this well. A family session was held and safety plan was completed prior to discharge. Patient will be discharged to his home where his step sister has arranged a private room for him. Day of Discharge Assessment Today the patient voices readiness for discharge. They note improvement in mood and deny thoughts to harm self or others. Thoughts remain organized and they are improved from admission. There is no evidence of psychosis. They agree to take mediations as prescribed and keep follow-up appointments. They are stable for discharge to outpatient level of care. Overall, I spent a total of 40 minutes with this case including review of chart records, nursing report, review of lab work, direct evaluation of the patient at bedside, counseling the patient, multidisciplinary team meeting, orders, and documentation in the electronic health record. Transition of Care Transition Of Care Record: was reviewed with the patient Advance Directives Advance Directives Information Provided: Yes Advance Directives: No Mental Health Advance Directive: No Advance Directives on File: No Living Will: No Power of Glass Smoother: No Advance Directives Reason:: Declines as Mental Health Visit. Suicide Risk Level Suicide Risk Level Comments: High-Moderate due to severe depression with SI with plan prior to admission but feels safe in the hospital, able to safety contract and agrees to let nursing/staff know should they develop plan, intent or feel unable to remain safe. Risk Factors Assessment Male: Yes : Yes Do You Have Access To A Gun?: No Health Problems: Yes Mental Health Diagnoses: Yes Substance Use Disorders: No Previous Attempt: Yes Previous Psychiatric Hospitalization: Yes Hopelessness: No Protective Factors Assessment Employed: No Stable Relationships: No (new breakup) Supportive Family: Yes Good Rapport with Provider: Yes Discharge Data Lab Results 02/26/25 02/26/25 02/27/25 01:03 01:28 07:54 WBC 5.92 RBC 4.67 L Hgb 14.0 Hct 40.2 L MCV 86.1 MCH 30.0 MCHC 34.8 RDW Std Deviation 43.4 RDW Coeff of Alex 14.1 Plt Count 158 MPV 10.3 Immature Gran % (Auto) 0.8 Neut % (Auto) 59.6 Lymph % (Auto) 25.8 Rhea % (Auto) 11.8 Eos % (Auto) 1.5 Baso % (Auto) 0.5 Neut # (Auto) 3.52 Lymph # (Auto) 1.53 Rhea # (Auto) 0.70 H Eos # (Auto) 0.09 Baso # (Auto) 0.03 Immature Gran # (Auto) 0.05 Sodium 135 L Potassium 3.2 L Chloride 99 Carbon Dioxide 24 Anion Gap 12 H BUN 11 Creatinine 0.91 Est Cr Clr Drug Dosing 132.5 eGFR 108.59 BUN/Creatinine Ratio 12.1 Glucose 104 H Estimat Average Glucose 105 Hemoglobin A1c 5.3 Calcium 9.0 Total Bilirubin 1.6 H AST 20 ALT 28 Alkaline Phosphatase 45 Total Protein 7.5 Albumin 3.7 Globulin 3.8 Albumin/Globulin Ratio 1.0 Triglycerides 323 H Cholesterol 98 LDL Cholesterol, Calc TNP VLDL Cholesterol, Calc 65 H HDL Cholesterol 40 Cholesterol/HDL Ratio 2.5 TSH 2.888 Urine Color Yellow Urine Appearance Clear Urine pH 6.0 Ur Specific [place] 1.028 Urine Protein 1+ H Urine Glucose (UA) Negative Urine Ketones Trace H Urine Blood Negative Urine Nitrite Negative Urine Bilirubin Negative Urine Urobilinogen Negative Ur Leukocyte Esterase 1+ H Urine WBC (Auto) 21-50 H Urine RBC (Auto) 0-2 U Hyaline Cast (Auto) 0-2 U Epithel Cells (Auto) 3-5 H Urine Bacteria (Auto) None Seen Urine Mucus Present A Urine Comment Salicylates < 3.0 L Urine Opiates Screen Neg Ur Methadone, Qual Neg Urine Fentanyl Screen Neg Acetaminophen < 3 L Urine Barbiturates Neg Valproic Acid 65 Ur Phencyclidine (PCP) Neg U Amphetamin/Meth Scrn Neg Urine MDEA negative MDMA (Ecstasy) Screen Pos H MDMA negative Urine MDMA negative U Benzodiazepines Scrn Neg Ur Cocaine Metabolite Neg U Marijuana (THC) Screen Neg Ethyl Alcohol mg/dL < 10.0 SARS-CoV-2, RNA, NAAT NEGATIVE Hospital Course (1) Suicide attempt: (2) Bipolar I disorder with depression: (3) Hirschsprung's disease: (4) Hernia, hiatal: (5) Altered bowel elimination due to intestinal ostomy: Plan 03/02/2025: Continue medications and treatment plan 03/01/2025: Continue medications and treatment plan 02/28/2025: D/c Bupropion 100mg in afternoon, increase AM dose to 150mg Increase nightly depakote DR to 750mg Start Vistaril 50mg HS 02/27/2025: -Continue current medications and tx plan -Health Editor consult placed -Zofran prn for nausea/vomiting 02/26/2025: The patient was admitted to the [facility] ([facility] unit) on q15 min checks (behavioral with suicide precautions) for safety. The patient will participate in group, recreational, and milieu therapies and will be offered additional individual and family sessions as clinically appropriate. -start Wellbutrin IR 100mg qAM and qafternoon -Depakote DR 500mg BID (preferred over HS ER formulation due to ostomy) -Continue Abilify 10mg daily -Depakote level, HbA1c, lipid panel in the morning Mental Health & Subst Abuse Tx Psychiatrist Name of Psychiatrist: German Diane - Dr. Mcgovern Psychiatrist's Date Of Appointment With Psychiatric Provider: 03/10/25 Time of Appointment with Psychiatrist: 4:35PM Psychiatric Appointment Comment: Virtual, Link for video call will be sent via text message Therapist Name of Therapist: Chrystalbeto [place] Blanca Therapist's Date of Therapist Appointment: 03/06/25 Time of Therapist Appointment: 3PM Therapy Appointment Comment: Virtual, Link for video call will be sent via text message Housekeeping Lead Name of Housekeeping Lead: Base service unit Phone Number for Housekeeping Lead: [phone] Post Discharge Appointments Primary Care Physician Name Of Family Doctor/PCP: Kwan [facility] - Dr Bart Freeman Primary Care Date of Future Appointment with PCP: 03/05/25 Time of Appointment with PCP: 1PM Provider Appointment Comment: Christopher Jones [place], [place] [id number] Contact Information Discharge Discharge Address: [address] [place] [address] [place]AKASH [address] Discharge Plan Discharge Items Patient Disposition: Home - Self-Care Reason For Visit: UNSPECIFIED DEPRESSIVE DISORDER Discharge Diagnosis: Bipolar 1 Disorder with depression Hirschsprung's disease: Hernia, hiatal: Altered bowel elimination due to intestinal ostomy: Condition on Discharge: Fair Activity: Resume your previous activity Non-emergency contact: Primary Care Provider and Psychiatrist Call non-emergency contact if: you have any medication questions and your symptoms worsen Follow-up/Referrals: Bart Freeman, [facility] [Primary Care Provider] - Diet: Regular Addtl Attending Provider Instructions: Continue Depakote DR 500mg in the morning, and 750mg in the evening Continue Aripiprazole (Abilify) 10mg daily Continue Bupropion 150mg in the morning Take Hydroxyzine (Vistaril) 50mg NEEDED for anxiety or insomnia Pending Studies at Discharge: No Stand-Alone Forms: My VoteIt, Smoking Cessation Medications and DC Order Prescriptions: New divalproex 250 mg Tablet,Delayed Release (Dr/Ec) 250 mg PO HS Qty: 30 0RF divalproex 500 mg Tablet,Delayed Release (Dr/Ec) 500 mg PO BID Qty: 60 0RF bupropion HCl 75 mg Tablet 150 mg PO DAILY Qty: 60 0RF hydroxyzine HCl 50 mg tablet 50 mg PO DAILY PRN (Reason: anxiety, insomnia) Qty: 30 0RF Continued valacyclovir 1 gram tablet 1 mg PO 1XD famotidine 20 mg tablet 20 mg PO DAILY pantoprazole 40 mg tablet,delayed release (DR/EC) 40 mg PO DAILY aripiprazole 10 mg tablet 10 mg PO DAILY Discontinued divalproex 500 mg tablet,delayed release (DR/EC) 500 mg PO BID trazodone 100 mg tablet 100 mg PO HS Discharge Orders: Discharge Order (Routine); Ordered 03/03/25 Ordered By: Hang Otto Admission Data Admit Date/Time: 02/26/25 10:38 Attending Provider: Hang Otto Admit Provider: Prema dEwards Primary Care Provider: Bart Freeman C[place] [address] D/C day mgmt > 30 min Patient Type Established History Detailed Exam Detailed Medical Decision Making Moderate Complexity Diagnoses Suicide attempt [id number] Bipolar I disorder with depression F31.9 Hirschsprung's disease Q43.1 Hernia, hiatal K44.9 Altered bowel elimination due to intestinal ostomy K94.19
== END 2025-03-03 14:55 | disposition home or self-care (01) | DRG 885 ==
LOC: ED 00:39 → 3S 10:38 → SUATTDRO 10:38 → 3S 10:47

== ENCOUNTER 2025-04-08 17:56 | Inpatient (IN) ==
--- NOTE | 2025-04-08 18:31 | Emergency Department Note ---
Impression & Plan SBO (small bowel obstruction), Abdominal pain, Parastomal hernia ED Provider Note NAME: JORDEN DECKER AGE: 40 SEX: M : 1985 ARRIVES VIA: Ambulance INFORMANT: Patient, ED PROVIDER(S): Lalit Marlow DO CHIEF COMPLAINT: Abdominal pain HPI: The patient is a 40-year-old male who presented to the emergency department for an evaluation of abdominal pain. The patient notes abdominal pain and cramping. He states the symptoms began recently but became worse over the last 24 hours. He has noted some vomiting. He has a history of parastomal hernia for his ostomy. ROS: See above HPI for pertinent positives & negatives. A total of 10 systems reviewed and were otherwise negative. PAST MEDICAL HISTORY: See Below PAST SURGICAL HISTORY: See Below FAMILY HISTORY: See Below SOCIAL HISTORY: See Below HOME MEDICATIONS: See Below ALLERGIES: See Below VITALS: See Below PHYSICAL EXAMINATION: GENERAL: Patient is awake alert in no acute distress patient is resting comfortably and showing no signs of anxiety EYES: The conjunctivae are clear. The pupils are round and reactive. NECK: The neck is nontender and supple. RESPIRATORY: Normal respiratory effort is noted there is no evidence of wheezing rhonchi or rales CARDIOVASCULAR: Regular rate and rhythm noted there no murmurs rubs or gallops normal S1 normal S2. GASTROINTESTINAL: The abdomen is soft. There is diffuse tenderness to palpation but no specific guarding or rigidity. The ostomy is patent. MUSCULOSKELETAL/EXTREMITIES: There is no evidence of gross deformity full range of motion is noted in the hips and shoulders. SKIN: There is no obvious evidence of any rash. There are no petechiae, pallor or cyanosis noted. NEUROLOGIC: Patient is awake alert and oriented x3 strength is symmetric patellar reflexes are 2+ bilaterally MEDICAL DECISION MAKING: The patient is a 40-year-old male who presented to the emergency department for an evaluation of abdominal pain and vomiting. The patient has a history of ostomy in the past. The patient was treated with IV fluids and IV antiemetics in emergency department. He was reevaluated multiple times. Imaging appear to be consistent with a bowel obstruction secondary to parastomal hernia. I discussed the patient's condition with on-call general surgery. I also discussed the case with the on-call [facility] hospitalist. They have agreed to evaluate the patient in the emergency department for further management and disposition on reevaluation the patient was feeling much better. Triage Nursing notes reviewed. Prior medical records reviewed Vital Signs: reviewed and remarkable for no significant abnormalities Differential diagnosis: Etiologies such as appendicitis, diverticulitis, obstruction, inflammatory bowel disease, renal colic, PUD, biliary pathology, pancreatitis, mesenteric ischemia, aortic pathology, infections, genitourinary, UTI, perforated viscus, as well as others were entertained. ER treatment provided: See below Diagnostics interpreted by me: ECG: none Cardiac Monitoring: An order was placed for continuous cardiac monitoring. The monitor shows a rate of 92 bpm with sinus rhythm. Laboratory studies: As stated above and show below. Imaging studies: See below. Radiographic imaging was reviewed by myself Consultation(s): I discussed this case with Kota who is on-call for general surgery. I discussed his case with Dr. Avina who is on-call for the [facility] hospitalist group. Past Med/Surg History Problem List (Updated 04/08/25 @ 23:11 by Lalit Marlow DO) Parastomal hernia (Acute) Abdominal pain (Acute) SBO (small bowel obstruction) (Acute) Small bowel obstruction Bipolar I disorder with depression Altered bowel elimination due to intestinal ostomy Medical History Suicide attempt Hernia, hiatal Gastritis GERD (gastroesophageal reflux disease) Genital HSV Hirschsprung's disease Social History Smoking Status: Never smoker Tobacco Type: Cigarettes Preferred Language: Croatian Communication Ability: Effective Property Technician Required: No Beliefs That Will Affect Care: None Feels Safe at Home: Yes Gender Identity: Male Assistive Devices: None Allergies Allergies Allergy/AdvReac Type Severity Reaction Status Date / Time No Known Allergies Allergy Verified 04/08/25 20:41 Home Meds Home Medications Medication Instructions Recorded Confirmed aripiprazole 10 mg tablet 10 mg PO DAILY 10/22/24 04/08/25 famotidine 20 mg tablet 20 mg PO DAILY 10/22/24 04/08/25 pantoprazole 40 mg tablet,delayed 40 mg PO DAILY 10/22/24 04/08/25 release valacyclovir 1 gram tablet 1,000 mg PO DAILY 04/08/25 04/08/25 Previous Rx's Medication Instructions Recorded bupropion HCl 75 mg tablet 150 mg (2 x 75 mg) PO DAILY #60 03/03/25 tabs divalproex 250 mg tablet,delayed 250 mg PO HS #30 tabs 03/03/25 release divalproex 500 mg tablet,delayed 500 mg PO BID #60 tabs 03/03/25 release hydroxyzine HCl 50 mg tablet 50 mg PO DAILY PRN anxiety, 03/03/25 insomnia #30 tabs Results & Data (ED) Vital Signs Vital Signs - 24 hr 04/08/25 18:09 04/08/25 18:11 04/08/25 19:00 Temperature 36.9 C Temperature Source Oral Pulse Rate 100 H 101 H 119 H Pulse Rate [Apical] Pulse Rhythm Pulse Rhythm [Apical] Pulse Strength [Apical] Respiratory Rate 20 19 Respiratory Effort / Characteristics Non-Labored Spontaneous Respiratory Depth Normal Respiratory Pattern Regular Blood Pressure 141/104 H 129/75 Blood Pressure [Right Arm] Blood Pressure Mean 116 99 Blood Pressure Mean [Right Arm] Blood Pressure Position [Right Arm] Pulse Oximetry 95 93 Oxygen Delivery Method Room Air Sepsis Recent Fever Within 48 Hours Yes Sepsis New/Unexplained Change in Mental Status No Sepsis Action Taken by Nursing No Action Required 04/08/25 19:18 04/08/25 20:00 04/08/25 20:00 Temperature Temperature Source Pulse Rate 93 H 99 H Pulse Rate [Apical] 95 H Pulse Rhythm Regular Pulse Rhythm [Apical] Regular Pulse Strength [Apical] Normal Respiratory Rate 18 19 18 Respiratory Effort / Characteristics Non-Labored Spontaneous Respiratory Depth Normal Respiratory Pattern Regular Blood Pressure 126/88 Blood Pressure [Right Arm] 134/86 Blood Pressure Mean 94 Blood Pressure Mean [Right Arm] 102 Blood Pressure Position [Right Arm] Semi-fowlers Pulse Oximetry 97 96 95 Oxygen Delivery Method Room Air Room Air Sepsis Recent Fever Within 48 Hours Sepsis New/Unexplained Change in Mental Status Sepsis Action Taken by Custodial Medications Current Medication List: was personally reviewed by me Laboratory Data Attestation: I reviewed the patient's lab results. 04/08/25 18:40 04/08/25 18:40 Lab Results 04/08/25 04/08/25 Range/Units 18:40 18:45 WBC 8.02 (4.8-10.8) K/ul RBC 4.97 (4.70-6.10) M/uL Hgb 15.4 (14.0-18.0) g/dl POC Hgb 15.3 (14.0-18.0) g/dl Hct 43.3 (42.0-52.0) % POC Hct 45 (42-52) % MCV 87.1 (80.0-100.0) fL MCH 31.0 (25.0-34.0) pg MCHC 35.6 (32.0-36.0) g/dL RDW Std Deviation 45.3 (36.4-46.3) fL RDW Coeff of Alex 14.2 (11.5-14.5) % Plt Count 176 (130-400) K/uL MPV 10.3 (9.4-12.4) fL Immature Gran % (Auto) 0.5 % Neut % (Auto) 72.8 % Lymph % (Auto) 16.5 % [place] % (Auto) 9.1 % Eos % (Auto) 0.7 % Baso % (Auto) 0.4 % Neut # (Auto) 5.84 (1.40-6.50) K/uL Lymph # (Auto) 1.32 (1.20-3.40) K/uL [place] # (Auto) 0.73 H (0.11-0.59) K/uL Eos # (Auto) 0.06 (0.00-0.50) K/uL Baso # (Auto) 0.03 (0.00-0.20) K/uL Immature Gran # (Auto) 0.04 (0.01-0.20) K/uL POC Sodium 140 (135-144) mmol/L Sodium 140 (136-145) mmol/L POC Potassium 4.7 (3.3-5.0) mmol/L Potassium 4.6 (3.5-5.1) mmol/L POC Chloride 102 (101-112) mmol/L Chloride 101 (98-107) mmol/L Carbon Dioxide 26 (21-32) mmol/L POC Total CO2 25 (24-31) mmol/L Anion Gap 13 H (3-11) POC Anion Gap 18.0 (16-25) mmol/L POC BUN 10 (7-18) mg/dl BUN 11 (6-23) mg/dl Creatinine 0.89 (0.6-1.4) mg/dl POC Creatinine 0.9 (0.6-1.3) mg/dl Est Cr Clr Drug Dosing 144.3 ml/min eGFR 110.41 BUN/Creatinine Ratio 12.4 (10-20) Glucose 103 H (70-99(Fasting)) mg/dl POC Glucose (other) 106 H (70-99) mg/dl Calcium 10.2 (8.6-10.3) mg/dl POC Ioniz Calcium Narda 1.22 (1.12-1.32) mmol/l Total Bilirubin 1.2 H (0.2-1.0) mg/dl AST 22 (13-39) U/L ALT 26 (7-52) U/L Alkaline Phosphatase 48 (34-104) U/L Total Protein 8.3 (6.0-8.3) gm/dl Albumin 4.0 (3.4-5.0) gm/dl Globulin 4.3 H (2.5-4.0) gm/dl Albumin/Globulin Ratio 0.9 (0.9-2) Lipase 14 (11-82) U/L Urine Color Cancelled Urine Appearance Cancelled Urine pH Cancelled Ur Specific [place] Cancelled Urine Protein Cancelled Urine Glucose (UA) Cancelled Urine Ketones Cancelled Urine Blood Cancelled Urine Nitrite Cancelled Urine Bilirubin Cancelled Urine Urobilinogen Cancelled Ur Leukocyte Esterase Cancelled Urine WBC (Auto) Cancelled Urine RBC (Auto) Cancelled U Hyaline Cast (Auto) Cancelled U Epithel Cells (Auto) Cancelled Urine Bacteria (Auto) Cancelled Ur Renal Epithelial Cell Cancelled [place] Biurate Crystals Cancelled Calcium Oxalate Crystal Cancelled Leucine Crystals Cancelled Cystine Crystals Cancelled Uric Acid Crystals Cancelled Triple Phos Crystals Cancelled Sulfonamide Crystals Cancelled Cholesterol Crystals Cancelled [place] Crystals Cancelled Tyrosine Crystals Cancelled Hippuric Acid Crystals Cancelled Unidentified Crystals Cancelled Amorphous Sediment Cancelled Epithelial Casts Cancelled Hyaline Casts Cancelled Granular Casts Cancelled Waxy Casts Cancelled RBC Casts Cancelled WBC Casts Cancelled Other Casts Cancelled Urine Mucus Cancelled Urine Other Cancelled Urine Trichomonas Cancelled Urine Yeast Cancelled Urine Sperm Cancelled Ur Oval Fat Bodies Cancelled Urine Comment Cancelled Administered Medications Lactated Ringer's (Lr) 1,000 mls @ 125 mls/hr IV .Q8H [facility] Stop: 04/09/25 05:44 Last Admin: 04/08/25 22:28 Dose: 125 mls/hr Documented By: ERM Discontinued Medications Sodium Chloride (Nss) 500 mls @ 999 mls/hr IV .Q31M STA Stop: 04/08/25 18:41 Last Infusion: 04/08/25 19:18 Dose: Infused Documented By: Admin: 04/08/25 18:46 Dose: 999 mls/hr Documented By: MR Acetaminophen (Ofirmev) 1,000 mg in 100 mls @ 400 mls/hr IV NOW STA Stop: 04/08/25 18:25 Last Infusion: 04/08/25 19:18 Dose: Infused Documented By: Admin: 04/08/25 18:49 Dose: 400 mls/hr Documented By: MR Ioversol (Optiray 320 100ml) 118 ml IV ONCE ONE Stop: 04/08/25 19:10 Last Admin: 04/08/25 19:10 Dose: 118 ml Documented By: ARELY Ketorolac Tromethamine (Ketorolac Tromethamine 15 Mg/Ml Vial) 15 mg IV NOW ONE Stop: 04/08/25 21:34 Last Admin: 04/08/25 21:56 Dose: 15 mg Documented By: JADA Morphine Sulfate (Morphine Sulfate 4 Mg/Ml 1 Ml Carp\Vial) 4 mg IV NOW STA Stop: 04/08/25 18:22 Last Admin: 04/08/25 18:48 Dose: 4 mg Documented By: MR Ondansetron HCl (Ondansetron Inj 2 Mg/Ml 2 Ml Vial) 4 mg IV NOW STA Stop: 04/08/25 18:12 Last Admin: 04/08/25 18:47 Dose: 4 mg Documented By: MR Ondansetron HCl (Ondansetron Inj 2 Mg/Ml 2 Ml Vial) 4 mg IV NOW STA Stop: 04/08/25 21:34 Last Admin: 04/08/25 21:56 Dose: 4 mg Documented By: JADA Imaging Data Attestation: I personally reviewed and interpreted this imaging study as follows: My Impression: CT of the abdomen and pelvis was obtained in the emergency department. My interpretation is no free air, dilated loops of small bowel consistent with obstruction were appreciated, final report below. Radiologist's Impression: Abdomen/Pelvis CT 04/08/25 18:21 Clinical History: Vomiting Technique: Axial computed tomography images were obtained of the abdomen and pelvis after the administration of intravenous contrast. No prior CT is available for comparison. Findings: The liver is enlarged measuring 21.6 cm. No liver mass lesion is seen. The portal vein is patent. The gallbladder has been removed. No bile duct dilatation is noted. The spleen is of normal size. No focal splenic lesion is evident. The pancreas appears normal with no sign of acute or chronic pancreatitis and no mass lesion noted. The pancreatic duct is of normal caliber. The adrenal glands appear unremarkable. No definite renal or proximal ureteral calculi are seen on this contrast-enhanced study. There is no hydronephrosis or perinephric stranding. No renal mass lesion is identified. The aorta is of normal caliber. No abdominal adenopathy is seen. The stomach appears normal. There has been near-total colectomy with a right upper quadrant ileostomy in place. There is parastomal herniation of small bowel loops at the point of this parastomal herniation. There is apparent small bowel obstruction. No free intraperitoneal fluid or air is identified. No distal ureteral or bladder calculi are seen. The bladder is decompressed. The iliac arteries are of normal caliber. No pelvic adenopathy is noted. There is a small left inguinal hernia containing only fat There is mild atelectasis or scar in the right lung base. Mild thoracolumbar degenerative disc disease is seen. No fracture is identified. No focal osseous lesion is seen Impression: Moderate severity small bowel obstruction due to parastomal herniation of small bowel loops involving an ileostomy ACT 112: Positive. There are findings on this exam that require communication between the performing entity and the patient following Patient Test Result Information Act ([place] ACT 112) guidelines. Electronically signed by Trevin Puckett 04-08-2025 7:27 PM Discharge Plan Visit Data Chief Complaint: Abdominal Pain ED Provider: Lalit Marlow ED Midlevel Provider: Marquis Diamond Discharge Problem: SBO (small bowel obstruction), Abdominal pain, Parastomal hernia Patient Disposition: Being Evaluated by Hospitalist Condition: Fair Discharge Instructions Interventions: ED Discharge Assessment Last Done: 04/08/25 23:03
[2025-04-08] MEDS: SODIUM CHLORIDE 0.9% 500 ML IV STA (18:46)
[2025-04-08] MEDS: ONDANSETRON INJ 2 MG/ML 2 ML VIAL IV STA ×2 (18:47→21:56)
[2025-04-08] MEDS: MoRPHine SULFATE 4 MG/ML 1 ML CARP\\VIAL IV STA (18:48)
[2025-04-08] MEDS: ACETAMINOPHEN 1,000 MG/100 ML VIAL IV STA (18:49)
[2025-04-08 19:03] LABS: Hematocrit (blood only) 43.3 % (42.0-52.0); Hemoglobin 15.4 g/dl (14.0-18.0); Immature Granulocytes # (auto) 0.04 K/uL (0.01-0.20); Immature Granulocytes % (auto) 0.5 %; Mean Corpuscular Hemoglobin 31.0 pg (25.0-34.0); Mean Corpuscular Volume 87.1 fL (80.0-100.0); Platelet Count 176 K/uL (130-400); RDW Standard Deviation 45.3 fL (36.4-46.3); Red Blood Count 4.97 M/uL (4.70-6.10); White Blood Count 8.02 K/ul (4.8-10.8)
[2025-04-08] MEDS: OPTIRAY 320 100ml IV ONE (19:10)
[2025-04-08 19:21] LABS: Alanine Aminotransferase 26.0 U/L (7-52); Albumin Globulin Ratio 0.9 (0.9-2); Alkaline Phosphatase 48.0 U/L (34-104); Anion Gap 13.0 (3-11); Bilirubin,Total 1.2 mg/dl (0.2-1.0); Blood Urea Nitrogen 11.0 mg/dl (6-23); Calcium 10.2 mg/dl (8.6-10.3); Carbon Dioxide 26.0 mmol/L (21-32); Chloride 101.0 mmol/L (98-107); Creatinine Clr Calc Pharmacy 144.3 ml/min; Globulin 4.3 gm/dl (2.5-4.0); Glucose 103.0 mg/dl (70-99(Fasting)); Lipase 14.0 U/L (11-82); Potassium 4.6 mmol/L (3.5-5.1); Sodium 140.0 mmol/L (136-145); Total Protein 8.3 gm/dl (6.0-8.3)
--- NOTE | 2025-04-08 19:27 | CT Scan Report ---
Clinical History: Vomiting Technique: Axial computed tomography images were obtained of the abdomen and pelvis after the administration of intravenous contrast. No prior CT is available for comparison. Findings: The liver is enlarged measuring 21.6 cm. No liver mass lesion is seen. The portal vein is patent. The gallbladder has been removed. No bile duct dilatation is noted. The spleen is of normal size. No focal splenic lesion is evident. The pancreas appears normal with no sign of acute or chronic pancreatitis and no mass lesion noted. The pancreatic duct is of normal caliber. The adrenal glands appear unremarkable. No definite renal or proximal ureteral calculi are seen on this contrast-enhanced study. There is no hydronephrosis or perinephric stranding. No renal mass lesion is identified. The aorta is of normal caliber. No abdominal adenopathy is seen. The stomach appears normal. There has been near-total colectomy with a right upper quadrant ileostomy in place. There is parastomal herniation of small bowel loops at the point of this parastomal herniation. There is apparent small bowel obstruction. No free intraperitoneal fluid or air is identified. No distal ureteral or bladder calculi are seen. The bladder is decompressed. The iliac arteries are of normal caliber. No pelvic adenopathy is noted. There is a small left inguinal hernia containing only fat There is mild atelectasis or scar in the right lung base. Mild thoracolumbar degenerative disc disease is seen. No fracture is identified. No focal osseous lesion is seen Impression: Moderate severity small bowel obstruction due to parastomal herniation of small bowel loops involving an ileostomy ACT 112: Positive. There are findings on this exam that require communication between the performing entity and the patient following Patient Test Result Information Act ([place] ACT 112) guidelines. Electronically signed by Trevin Puckett 04-08-2025 7:27 PM
--- NOTE | 2025-04-08 20:36 | Surgery Consultation ---
Date of Consultation April 08, 2025 Assessment & Plan (1) Small bowel obstruction: I discussed with the treating emergency room physician the patient is being admitted on the hospitalist service. Surgical recommendations are as follows: Appears patient has a small bowel obstruction, likely secondary to a parastomal hernia At the time of my interview the patient was nontoxic-appearing. He has not had any emesis in approximately 4 hours. As the patient has noted that he has had multiple small bowel obstructions in the past responding to conservative manners we will employ these measures at this time: N.p.o. status should be implemented Patient should be hydrated IV fluids As the patient has not had any emesis in approximate 4 hours and he currently does not have any nausea I feel we can hold on placing NG tube at this time. I did discuss with the patient that if he has any clinical deterioration or further nausea or vomiting an NG tube will likely be required and he is agreeable to this modality should he come to the As the patient is nontoxic-appearing and he does have some output from his ileostomy I am hopeful that conservative measures will be successful in resolving his small bowel obstruction Would recommend following serial labs Additional recommendations be forthcoming based on his clinical course as unfolds Supervising Physician Co-Signing Physician Notes This case was discussed with the surgical PA and I agree with this plan History of Present Illness Reason for Consultation: Small bowel obstruction History of Present Illness This is a 40-year-old male who presented to the emergency department at [facility] secondary to cramp-like abdominal pain that began earlier today. He notes that the pain is primary located in the mid abdomen without radiation or mitigating factors. Patient has also had associated nausea and vomiting. Patient does have a history significant for Hirschsprung's disease. Patient says as a result of this he has an ileostomy and he has had this since age 9. Patient says that he has had to have his ileostomy revised on 3 occasions most recently approximately 5 years ago. (He does note that all of his surgeries regarding his ileostomy were done at [facility] in [place], [place]). Patient has relocated to [place] to help care for his mother and he does not have a local surgeon that he follows with. In addition to what is noted above patient says that he has had multiple small bowel obstructions in the past most recently 1.5 years agohe notes that he has never had to have any surgery for his small bowel obstructions as they usually respond to conservative measures. Additional abdominal surgeries he has includes cholecystectomy. The patient does note that since his symptomatology began his ileostomy is having output but it is mostly liquid. Since arrival to emergency department he has had labs and imaging which independent reviewed. Labs included CBC white blood cell count, hemoglobin, hematocrit, platelet count were all normal. Chemistry profile showed sodium and potassium as well as the BUN and creatinine were normal. A CT scan of the abdomen pelvis was performed and this showed the patient had a small bowel obstruction due to a parastomal hernia. At the time of my interview the patient was resting comfortably in bed he was no distresshe notes that has been approximately 4 hours since he has had any emesis. Allergies Allergy/AdvReac Type Severity Reaction Status Date / Time No Known Allergies Allergy Verified 04/08/25 20:41 Home Medications Medication Instructions Recorded Confirmed Type aripiprazole 10 mg tablet 10 mg PO DAILY 10/22/24 04/08/25 History famotidine 20 mg tablet 20 mg PO DAILY 10/22/24 04/08/25 History pantoprazole 40 mg tablet,delayed 40 mg PO DAILY 10/22/24 04/08/25 History release bupropion HCl 75 mg tablet 150 mg (2 x 75 mg) PO DAILY #60 03/03/25 04/08/25 Rx tabs divalproex 250 mg tablet,delayed 250 mg PO HS #30 tabs 03/03/25 04/08/25 Rx release divalproex 500 mg tablet,delayed 500 mg PO BID #60 tabs 03/03/25 04/08/25 Rx release hydroxyzine HCl 50 mg tablet 50 mg PO DAILY PRN anxiety, 03/03/25 04/08/25 Rx insomnia #30 tabs valacyclovir 1 gram tablet 1,000 mg PO DAILY 04/08/25 04/08/25 History Patient History Medical History Suicide attempt Hernia, hiatal Gastritis GERD (gastroesophageal reflux disease) Genital HSV Hirschsprung's disease Social History Smoking Status: Former smoker Tobacco Type: Cigarettes Hx Alcohol Use: No Hx Substance Use: No Preferred Language: Argentine Communication Ability: Effective Unhairing Machine Operator Required: No Beliefs That Will Affect Care: None Current Living Situation: Significant Other Other Information That Helps Us Care for You: No Feels Safe at Home: Yes Safety Concerns: Feels Safe At This Time Gender Identity: Male Assistive Devices: CPAP Assistive Devices Comment: STATES HIS CPAP IS BROKEN AND INSURANCE HAS BEEN DIFFICULT TO WORK WITH Review of Systems Review of Systems: All systems reviewed & are unremarkable except as noted in HPI & below Physical Exam Constitutional: WD/WN, vitals as above Eyes: no conjunctival abnormality ENMT: Ears: no hearing impairment Neck: trachea midline Respiratory: normal respiratory effort; no respiratory distress and no labored breathing Cardiovascular: Rate/Rhythm: regular rate and regular rhythm Vessels: dorsalis pedis pulses present Gastrointestinal (Abdomen): The patient's abdomen is rotund. It is soft and nonrigid. There is no rebound tenderness, guarding, or signs of peritonitis. Patient does have an ostomy just to the right and slightly inferior to the umbilicus. In the collection bag there is a moderate amount of brown liquid material and some gas. Patient did have some slight tenderness to palpation in the midline. Musculoskeletal: No calf tenderness Skin: no rashes Neurologic: moves all extremities Psychiatric: A+Ox3, euthymic affect Results & Data Vital Signs (Past 12 Hours) Vital Signs Temp Pulse Resp BP Pulse Ox O2 Del Method 04/08/25 20:00 99 H 19 126/88 96 04/08/25 19:18 93 H 18 97 Room Air 04/08/25 19:00 119 H 19 129/75 93 04/08/25 18:11 36.9 C 101 H 20 141/104 H 95 Room Air 04/08/25 18:09 100 H PG Care Time/CCT Total # of Minutes Spent Total Time Spent with Patient: Total time spent is greater than 50% in coordination of care (as documented) at patient's floor/unit and/or counseling patient: Coding Level of Care Code 06625 IN/OBS CONSULT LVL 5,80M Diagnoses Small bowel obstruction K56.609
--- NOTE | 2025-04-08 21:45 | History & Physical Report ---
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 Admission labs were unremarkable. 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 Patient does not have local surgeon he is following with, all previous [place] state. #small bowel obstruction - patient is well-appearing, non-toxic appearing at bedside, in a reasonable level of comfort. States nausea has been coming in waves, however last vomiting episode was 4-5 hours ago. Pain seems to be relatively controlled at this time - CBC without leukocytosis; BMP nonactionable - CT abdomen/pelvis - small bowel obstruction due to parastomal herniation of small bowel obstruction of involving an ileostomy - general surgery consulted and appreciate recommendations - will plan to manage conservatively at this time given patient stability - NPO - IV fluids - LR 80mL - hold HG tube given patient has not had vomiting episode for about 4 hours - pain control with tylenol 1000mg IV ; dose of toradol was given on admission ; of note, patient is a currently 10 years sober from alcohol dependence and stated he would like to avoid opioid pain management during admission if possible - zofran IV prn - CBC & BMP qAM #bipolar 1 disorder - mood has been stable - continue home psych meds - aripiprazole 10mg daily, bupropion 150mg daily, divalproex 750mg daily, hydroxyzine 50mg prn #GERD - protonix 40mg IV daily - famotidine 20mg IV daily #herpes infection - continue valacyclovir 1000mg daily DVT - lovenox 40mg q12h Dispo - med/surg History of Present Illness Chief Complaint: abdominal pain, nausea/vomiting Primary Care Provider: Bart Freeman PA-C Slava Martinez is a 40 y/o M PMHx Hirschsprung disease w/ ileostomy placed at age 9 and bipolar I disorder who presented to [facility] for evaluation of cramp-like abdominal pain associated with nausea and vomiting. States the pain started this morning and has progressively worsened throughout the day. Rating pain 8/10 at first onset, now improved to 6/10. Located mostly mid-abdominal/around umbilicus and denies radiation. Patient also notes changes to ostomy output, reporting now watery output which is different from baseline of thick/solid. Last oral intake was last night. Last vomiting episode was about 4-5 hours ago. States his nausea has been coming in waves since arrival. Of note, patient has had 3 revisions of his ileostomy, all done at [facility] in [place], [place]. ED labs showing CBC and BMP wnl. 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 Patient is being admitted for cramp-like abdominal pain associated with nausea/vomiting in the setting of SBO due to parastomal hernia. Allergies Allergy/AdvReac Type Severity Reaction Status Date / Time No Known Allergies Allergy Verified 04/08/25 20:41 Home Medications Medication Instructions Recorded Confirmed Type aripiprazole 10 mg tablet 10 mg PO DAILY 10/22/24 04/08/25 History famotidine 20 mg tablet 20 mg PO DAILY 10/22/24 04/08/25 History pantoprazole 40 mg tablet,delayed 40 mg PO DAILY 10/22/24 04/08/25 History release bupropion HCl 75 mg tablet 150 mg (2 x 75 mg) PO DAILY #60 03/03/25 04/08/25 Rx tabs divalproex 250 mg tablet,delayed 250 mg PO HS #30 tabs 03/03/25 04/08/25 Rx release divalproex 500 mg tablet,delayed 500 mg PO BID #60 tabs 03/03/25 04/08/25 Rx release hydroxyzine HCl 50 mg tablet 50 mg PO DAILY PRN anxiety, 03/03/25 04/08/25 Rx insomnia #30 tabs valacyclovir 1 gram tablet 1,000 mg PO DAILY 04/08/25 04/08/25 History Past Med/Surg History Problem List (Updated 04/08/25 @ 23:11 by Lalit Marlow DO) Parastomal hernia (Acute) Abdominal pain (Acute) SBO (small bowel obstruction) (Acute) Small bowel obstruction Bipolar I disorder with depression Altered bowel elimination due to intestinal ostomy Medical History Suicide attempt Hernia, hiatal Gastritis GERD (gastroesophageal reflux disease) Genital HSV Hirschsprung's disease Social History Smoking Status: Never smoker Tobacco Type: Cigarettes Preferred Language: Iraqi Communication Ability: Effective 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 Tenderness to palpation around midline and umbilicus. Ileostomy is to the right of the umbilicus and patent watery yellowish-brown output. no rebound or guarding. Musculoskeletal: Head/Neck/Chest: normocephalic and head atraumatic Extremities: extremities normal to inspection Skin: no rashes, warm and dry Neurologic: PERRL, EOMI, accommodation nl, no face palsy, no dysarthria CN's II-XI intact bilaterally Psychiatric: A+Ox3, euthymic affect Results & Data Results & Data Vital Signs (Past 12 Hours) Vital Signs Temp Pulse Pulse Resp BP BP Pulse Ox 04/08/25 20:00 95 H 18 134/86 95 04/08/25 20:00 99 H 19 126/88 96 04/08/25 19:18 93 H 18 97 04/08/25 19:00 119 H 19 129/75 93 04/08/25 18:11 36.9 C 101 H 20 141/104 H 95 04/08/25 18:09 100 H O2 Del Method 04/08/25 20:00 Room Air 04/08/25 20:00 04/08/25 19:18 Room Air 04/08/25 19:00 04/08/25 18:11 Room Air 04/08/25 18:09 Laboratory Results Laboratory Results WBC 7.40 K/ul (4.8-10.8) 04/08/25 23:26 RBC 4.85 M/uL (4.70-6.10) 04/08/25 23: Hgb 14.6 g/dl (14.0-18.0) 04/08/25 23: POC Hgb 15.3 g/dl (14.0-18.0) 04/08/25 18:45 Hct 42.5 % (42.0-52.0) 04/08/25 23: POC Hct 45 % (42-52) 04/08/25 18:45 MCV 87.6 fL (80.0-100.0) 04/08/25 23: MCH 30.1 pg (25.0-34.0) 04/08/25 23: MCHC 34.4 g/dL (32.0-36.0) 04/08/25: RDW Std Deviation 46.0 fL (36.4-46.3) 04/08/25: RDW Coeff of Alex 14.4 % (11.5-14.5) 04/08/25: Plt Count 173 K/uL (130-400) 04/08/25 23: MPV 10.0 fL (9.4-12.4) 04/08/25 23: Immature Gran % (Auto) 0.4 % 04/08/25 23: Neut % (Auto) 61.6 % 04/08/25 23: Lymph % (Auto) 24.2 % 04/08/25 23: [place] % (Auto) 12.7 % 04/08/25 23: Eos % (Auto) 0.8 % 04/08/25 23: Baso % (Auto) 0.3 % 04/08/25 23: Neut # (Auto) 4.56 K/uL (1.40-6.50) 04/08/25 23: Lymph # (Auto) 1.79 K/uL (1.20-3.40) 04/08/25: [place] # (Auto) 0.94 K/uL (0.11-0.59) H 04/08/25 23: Eos # (Auto) 0.06 K/uL (0.00-0.50) 04/08/25 23: Baso # (Auto) 0.02 K/uL (0.00-0.20) 04/08/25 23:26 Immature Gran # (Auto) 0.03 K/uL (0.01-0.20) 04/08/25 23:26 POC Sodium 140 mmol/L (135-144) 04/08/25 18:45 Sodium 137 mmol/L (136-145) 04/08/25 23:26 POC Potassium 4.7 mmol/L (3.3-5.0) 04/08/25 18:45 Potassium 4.3 mmol/L (3.5-5.1) 04/08/25 23: POC Chloride 102 mmol/L (101-112) 04/08/25 18:45 Chloride 102 mmol/L (98-107) 04/08/25 23: Carbon Dioxide 25 mmol/L (21-32) 04/08/25 23: POC Total CO2 25 mmol/L (24-31) 04/08/25 18:45 Anion Gap 10 (3-11) 04/08/25: POC Anion Gap 18.0 mmol/L (16-25) 04/08/25 18:45 POC BUN 10 mg/dl (7-18) 04/08/25 18:45 BUN 13 mg/dl (6-23) 04/08/25: Creatinine 0.95 mg/dl (0.6-1.4) 04/08/25: POC Creatinine 0.9 mg/dl (0.6-1.3) 04/08/25 18:45 Est Cr Clr Drug Dosing 135.2 ml/min 04/08/25 23: eGFR 103.13 04/08/25 23: BUN/Creatinine Ratio 13.7 (10-20) 04/08/25 23: Glucose 100 mg/dl (70-99(Fasting)) H 04/08/25 23: POC Glucose (other) 106 mg/dl (70-99) H 04/08/25 18:45 Calcium 9.8 mg/dl (8.6-10.3) 04/08/25 23: POC Ioniz Calcium Narda 1.22 mmol/l (1.12-1.32) 04/08/25 18:45 Total Bilirubin 2.0 mg/dl (0.2-1.0) H D 04/08/25 23:26 AST 130 U/L (13-39) H 04/08/25 23:26 ALT 70 U/L (7-52) H 04/08/25 23:26 Alkaline Phosphatase 63 U/L (34-104) 04/08/25 23:26 Total Protein 7.7 gm/dl (6.0-8.3) 04/08/25 23:26 Albumin 3.8 gm/dl (3.4-5.0) 04/08/25 23:26 Globulin 3.9 gm/dl (2.5-4.0) 04/08/25 23: Albumin/Globulin Ratio 1.0 (0.9-2) 04/08/25 23:26 Lipase 14 U/L (11-82) 04/08/25 18:40 Urine Color Dark Yellow 04/09/25 02:22 Urine Appearance Cloudy (Clear) A 04/09/25 02:22 Urine pH 6.0 (4.5-7.5) 04/09/25 02:22 Ur Specific [place] > 1.045 (1.000-1.030) H 04/09/25 02:22 Urine Protein 1+ (Negative) H 04/09/25 02:22 Urine Glucose (UA) Negative (Negative) 04/09/25 02:22 Urine Ketones Trace (Negative) H 04/09/25 02:22 Urine Blood Negative (Negative) 04/09/25 02:22 Urine Nitrite Positive (Negative) A 04/09/25 02:22 Urine Bilirubin 2+ (Negative) H 04/09/25 02:22 Urine Urobilinogen Negative (Negative) 04/09/25 02:22 Ur Leukocyte Esterase Trace (Negative) H 04/09/25 02:22 Urine WBC (Auto) 6-10 /hpf (0-5) H 04/09/25 02:22 Urine RBC (Auto) >20 /hpf (0-2) H 04/09/25 02:22 U Hyaline Cast (Auto) 0-2 /lpf (0-2) 04/09/25 02:22 U Epithel Cells (Auto) 0-2 /hpf (0-2) 04/09/25 02:22 Urine Bacteria (Auto) None Seen (None Seen) 04/09/25 02:22 Ur Renal Epithelial Cell Cancelled 04/08/25 18:40 Donny Biurate Crystals Cancelled 04/08/25 18:40 Calcium Oxalate Crystal Cancelled 04/08/25 18:40 Leucine Crystals Cancelled 04/08/25 18:40 Cystine Crystals Cancelled 04/08/25 18:40 Uric Acid Crystals Cancelled 04/08/25 18:40 Triple Phos Crystals Cancelled 04/08/25 18:40 Sulfonamide Crystals Cancelled 04/08/25 18:40 Cholesterol Crystals Cancelled 04/08/25 18:40 Talc Crystals Cancelled 04/08/25 18:40 Tyrosine Crystals Cancelled 04/08/25 18:40 Hippuric Acid Crystals Cancelled 04/08/25 18:40 Unidentified Crystals Cancelled 04/08/25 18:40 Amorphous Sediment Cancelled 04/08/25 18:40 Epithelial Casts Cancelled 04/08/25 18:40 Hyaline Casts Cancelled 04/08/25 18:40 Granular Casts Cancelled 04/08/25 18:40 Waxy Casts Cancelled 04/08/25 18:40 RBC Casts Cancelled 04/08/25 18:40 WBC Casts Cancelled 04/08/25 18:40 Other Casts Cancelled 04/08/25 18:40 Urine Mucus Cancelled 04/08/25 18:40 Urine Other Cancelled 04/08/25 18:40 Urine Trichomonas Cancelled 04/08/25 18:40 Urine Yeast Cancelled 04/08/25 18:40 Urine Sperm Cancelled 04/08/25 18:40 Ur Oval Fat Bodies Cancelled 04/08/25 18:40 Urine Comment 04/09/25 02:22 Impressions Abdomen/Pelvis CT 04/08/25 18:21 Clinical History: Vomiting Technique: Axial computed tomography images were obtained of the abdomen and pelvis after the administration of intravenous contrast. No prior CT is available for comparison. Findings: The liver is enlarged measuring 21.6 cm. No liver mass lesion is seen. The portal vein is patent. The gallbladder has been removed. No bile duct dilatation is noted. The spleen is of normal size. No focal splenic lesion is evident. The pancreas appears normal with no sign of acute or chronic pancreatitis and no mass lesion noted. The pancreatic duct is of normal caliber. The adrenal glands appear unremarkable. No definite renal or proximal ureteral calculi are seen on this contrast-enhanced study. There is no hydronephrosis or perinephric stranding. No renal mass lesion is identified. The aorta is of normal caliber. No abdominal adenopathy is seen. The stomach appears normal. There has been near-total colectomy with a right upper quadrant ileostomy in place. There is parastomal herniation of small bowel loops at the point of this parastomal herniation. There is apparent small bowel obstruction. No free intraperitoneal fluid or air is identified. No distal ureteral or bladder calculi are seen. The bladder is decompressed. The iliac arteries are of normal caliber. No pelvic adenopathy is noted. There is a small left inguinal hernia containing only fat There is mild atelectasis or scar in the right lung base. Mild thoracolumbar degenerative disc disease is seen. No fracture is identified. No focal osseous lesion is seen Impression: Moderate severity small bowel obstruction due to parastomal herniation of small bowel loops involving an ileostomy ACT 112: Positive. There are findings on this exam that require communication between the performing entity and the patient following Patient Test Result Information Act ([place] ACT 112) guidelines. Electronically signed by Trevin Puckett 04-08-2025 7:27 PM Supervising Physician Co-Signing Physician Notes Patient seen and examined, chart reviewed, case discussed with Dr. Luna and I agree with the assessment and plan as above. Patient with history of Hirschsprung's disease s/p ileostomy presenting with abdominal pain. Patient with SBO secondary to parastomal hernia Abdomen soft, mildly tender at present, mildly distended with normal bowel sounds Ileostomy with liquid output Remainder of exam unremarkable Labs and images reviewed No significant dehydration or electrolyte abnormality Assessment/Plan -NPO -IVF -Pain control and anti-emetics PRN -General Surgery consultation appreciated -Remainder as above Resident Activity Tracking Resident Involvement: Resident Care Provided Care Provided: Adult [facility] Medicine
[2025-04-08] MEDS: KETOROLAC TROMETHAMINE 15 MG/ML VIAL IV ONE (21:56)
[2025-04-08] MEDS: LACTATED RINGER'S 1,000 ML IV SCH ×2 (22:28→23:55)
[2025-04-08 23:53] LABS: Hematocrit (blood only) 42.5 % (42.0-52.0); Hemoglobin 14.6 g/dl (14.0-18.0); Immature Granulocytes # (auto) 0.03 K/uL (0.01-0.20); Immature Granulocytes % (auto) 0.4 %; Mean Corpuscular Hemoglobin 30.1 pg (25.0-34.0); Mean Corpuscular Volume 87.6 fL (80.0-100.0); Platelet Count 173 K/uL (130-400); RDW Standard Deviation 46.0 fL (36.4-46.3); Red Blood Count 4.85 M/uL (4.70-6.10); White Blood Count 7.40 K/ul (4.8-10.8)
[2025-04-08] MEDS: MoRPHine SULFATE 2 MG/ML CARP IV STA (23:54)
[2025-04-08] MEDS: ZOLPIDEM TARTRATE 5 MG TAB PO PRN (23:54)
[2025-04-08] MEDS: ENOXAPARIN INJ 40 MG/0.4 ML SYR SQ ONE (23:54)
[2025-04-09 00:09] LABS: Alanine Aminotransferase 70.0 U/L (7-52); Albumin Globulin Ratio 1.0 (0.9-2); Alkaline Phosphatase 63.0 U/L (34-104); Anion Gap 10.0 (3-11); Bilirubin,Total 2.0 mg/dl (0.2-1.0); Blood Urea Nitrogen 13.0 mg/dl (6-23); Calcium 9.8 mg/dl (8.6-10.3); Carbon Dioxide 25.0 mmol/L (21-32); Chloride 102.0 mmol/L (98-107); Creatinine Clr Calc Pharmacy 135.2 ml/min; Globulin 3.9 gm/dl (2.5-4.0); Glucose 100.0 mg/dl (70-99(Fasting)); Potassium 4.3 mmol/L (3.5-5.1); Sodium 137.0 mmol/L (136-145); Total Protein 7.7 gm/dl (6.0-8.3)
[2025-04-09 03:19] LABS: Appearance Urine Cloudy (Clear); Bacteria Urine Automated None Seen (None Seen); Cast Urine Automated 0-2 /lpf (0-2); Epithelial Cell Urine Auto 0-2 /hpf (0-2); Glucose Urine UA Negative (Negative); RBC Urine Automated >20 /hpf (0-2)
--- NOTE | 2025-04-09 06:13 | Billing Data ---
Date of Service April 08, 2025 Coding Level of Care Code 33091 INT INP/OBS CARE
[2025-04-09] MEDS: ACETAMINOPHEN 1,000 MG/100 ML VIAL IV PRN (07:12)
[2025-04-09] MEDS: ONDANSETRON INJ 2 MG/ML 2 ML VIAL IV PRN (07:13)
[2025-04-09] MEDS: ENOXAPARIN INJ 40 MG/0.4 ML SYR SQ SCH (09:01)
[2025-04-09] MEDS: FAMOTIDINE 20MG IV PUSH 20 MG/5 ML SYR IV SCH (09:01)
[2025-04-09] MEDS: DIVALPROEX DELAY RELEASE 500 MG TAB PO SCH (09:02)
[2025-04-09] MEDS: PANTOprazole 40 MG/10 ML SYR IV SCH (09:02)
--- NOTE | 2025-04-09 10:28 | Hospitalist Progress Note ---
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 Admission labs were unremarkable. 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 Patient does not have local surgeon he is following with, all [place]. Small bowel obstruction NPO except meds, IV fluids (increase to 100ml/hr as his maintenance rate for ideal body weight) Appreciate general surgery recommendations #bipolar 1 disorder - mood has been stable - continue home psych meds - aripiprazole 10mg daily, bupropion 150mg daily, divalproex 750mg daily, hydroxyzine 50mg prn #GERD - Protonix 40mg IV daily - famotidine 20mg IV daily VTE Prophylaxis - Lovenox 40mg q12h (increased dose due to morbid obesity) Dispo - med/surg Admission and Anticipated Discharge Date Admission Date: April 08, 2025 Subjective Ongoing abdominal pain. Too many abdominal surgeries to count. Surgery recommending continuing NPO status at this time. Physical Exam Respiratory: normal respiratory effort, lungs clear to auscultation Cardiovascular: RRR, no murmur, no edema Gastrointestinal (Abdomen): Inspection/Auscultation: + abdomen abnormal to inspection (stoma with reducible mildly tender parastomal hernia present) Percussion/Palpation: + abdomen tender (mostly just superior to stoma); no guarding and abdomen not rigid Results & Data Results & Data Vital Signs (Past 12 Hours) Vital Signs Pulse Resp BP Pulse Ox O2 Del Method 04/09/25 09:13 90 20 145/93 H 92 Room Air 04/09/25 07:06 86 17 136/84 94 Room Air 04/08/25 23:37 90 20 125/80 94 Room Air PG Care Time/CCT Total # of Minutes Spent Total Time Spent with Patient: Total time spent is greater than 50% in coordination of care (as documented) at patient's floor/unit and/or counseling patient: Coding Level of Care Code 94856 SUB INP/OBS CARE MIN Diagnoses Small bowel obstruction K56.609 Bipolar I disorder with depression F31.9 Altered bowel elimination due to intestinal ostomy K94.19
--- NOTE | 2025-04-09 11:08 | Surgery Progress Note ---
Date of Service April 09, 2025 Assessment & Plan (1) Parastomal hernia: (2) SBO (small bowel obstruction): Plan Partial obstruction. Pt admitted to the medical service. Previous tachycardia resolved. Continue with conservative measures at this time. Would keep NPO today Ambulate May have chemical DVT ppx Admission and Anticipated Discharge Date Admission Date: April 08, 2025 Subjective Pt has been seen this am. He c/o abdominal soreness, resolution of vomiting and mild nausea. There is ongoing liquid passing into his ileostomy bag. No flatus as of yet. Physical Exam Constitutional: + obese; not ill appearing, not in distr ess and not diaphoretic Respiratory: normal respiratory effort; no respiratory distress, no labored breathing and does not use accessory muscles Cardiovascular: Rate/Rhythm: regular rate Gastrointestinal (Abdomen): soft, hernia feels reducible although it does re-herniate Ongoing liquid succus expelling into the ostomy bag TTP, no peritonitis. Ileostomy is viable. Results & Data Vital Signs (Past 12 Hours) Vital Signs Pulse Resp BP Pulse Ox O2 Del Method 04/09/25 09:13 90 20 145/93 H 92 Room Air 04/09/25 07:06 86 17 136/84 94 Room Air 04/08/25 23:37 90 20 125/80 94 Room Air PG Care Time/CCT Total # of Minutes Spent Total Time Spent with Patient: Total time spent is greater than 50% in coordination of care (as documented) at patient's floor/unit and/or counseling patient: Coding Level of Care Code 10317 SUB INP/OBS CARE 08/31MIN Diagnoses Parastomal hernia with obstruction and without gangrene K43.3 Obstruction and gangrene presence: with obstruction but without gangrene SBO (small bowel obstruction) K56.609 (1) Parastomal hernia Obstruction and gangrene presence: with obstruction but without gangrene Qualified Code(s): K43.3 - Parastomal hernia with obstruction, without gangrene
[2025-04-09] MEDS: KETOROLAC TROMETHAMINE 15 MG/ML VIAL IV PRN (12:13)
[2025-04-09] MEDS: DIVALPROEX DELAY RELEASE 250 MG TABEC PO SCH (21:34)
--- NOTE | 2025-04-10 07:29 | Surgery Progress Note ---
Date of Service April 10, 2025 Assessment & Plan (1) Parastomal hernia: Plan: Pt w/ history of Hirschsprung with ileostomy in place here w/ sbo ?2/2 parastomal hernia vitals stable patient has flatus and liquid stool in his ostomy bag abdomen soft, but does experience some discomfort with palpation around his hernia will consider a trial of clears today and see how he fairs; if worsening symptoms back down to NPO encouraged ambulation Admission and Anticipated Discharge Date Admission Date: April 08, 2025 Supervising Physician Co-Signing Physician Notes I have seen and examined this patient this am. I agree with this plan. Subjective Patient feeling okay. Having some intermittent crampy feelings. Overall though is feeling better than admission. He is asking to try something to eat. He has liquid stool and some gas in the bag. Physical Exam Physical Exam: awake/alert, no distress Gastrointestinal (Abdomen): Percussion/Palpation: + abdomen tender (discomfort around ileostomy) and abdomen soft + liquid stool and some gas noted in ost valery bag Results & Data Vital Signs (Past 12 Hours) Vital Signs Temp Pulse Resp BP Pulse Ox O2 Del Method 04/10/25 07:11 98.2 F 83 20 122/83 91 Room Air 04/09/25 23:49 98.4 F 77 16 124/73 94 Room Air PG Care Time/CCT Total # of Minutes Spent Total Time Spent with Patient: Total time spent is greater than 50% in coordination of care (as documented) at patient's floor/unit and/or counseling patient: Coding Level of Care Code 17611 SUB INP/OBS CARE 08/31MIN Diagnoses Parastomal hernia with obstruction and without gangrene K43.3 Obstruction and gangrene presence: with obstruction but without gangrene (1) Parastomal hernia Obstruction and gangrene presence: with obstruction but without gangrene Qualified Code(s): K43.3 - Parastomal hernia with obstruction, without gangrene
[2025-04-10] MEDS: SIMETHICONE 80 MG CHEW PO ONE (13:36)
--- NOTE | 2025-04-10 18:21 | Hospitalist Progress Note ---
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 Admission labs were unremarkable. 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 Patient does not have local surgeon he is following with, all [place]. Small bowel obstruction Clear liquids, will continue IV fluids while patient not drinking enough but reduce rate to 80ml/hr Appreciate general surgery recommendations Avoid opiates, encourage ambulation #bipolar 1 disorder - mood has been stable - continue home psych meds - aripiprazole 10mg daily, bupropion 150mg daily, divalproex 750mg daily, hydroxyzine 50mg prn #GERD - Protonix 40mg IV daily - famotidine 20mg IV daily VTE Prophylaxis - Lovenox 40mg q12h (increased dose due to morbid obesity) Dispo - med/surg Admission and Anticipated Discharge Date Admission Date: April 08, 2025 Subjective No significant change in patients abdominal pain, possibly a little worse after having liquids. No vomiting. Passing flatus. Feeling bloating. Physical Exam Respiratory: normal respiratory effort, lungs clear to auscultation Cardiovascular: RRR, no murmur, no edema Gastrointestinal (Abdomen): Inspection/Auscultation: + abdomen abnormal to inspection (stoma with reducible mildly tender parastomal hernia present) Percussion/Palpation: + abdomen tender (mostly just superior to stoma); no guarding and abdomen not rigid Results & Data Results & Data Vital Signs (Past 12 Hours) Vital Signs Temp Pulse Resp BP Pulse Ox O2 Del Method 04/10/25 15:07 37 C 90 18 141/83 H 93 Room Air 04/10/25 07:11 36.8 C 83 20 122/83 91 Room Air PG Care Time/CCT Total # of Minutes Spent Total Time Spent with Patient: Total time spent is greater than 50% in coordination of care (as documented) at patient's floor/unit and/or counseling patient: Coding Level of Care Code 54627 SUB INP/OBS CARE MIN Diagnoses Small bowel obstruction K56.609 Bipolar I disorder with depression F31.9 Altered bowel elimination due to intestinal ostomy K94.19
--- NOTE | 2025-04-11 11:09 | Surgery Progress Note ---
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 these were all performed in [place] where he was originally from. would consider a tertiary center as outpatient for colorectal referral for possible repair in future. hoping he continues to make progress here with diet and symptoms (2) SBO (small bowel obstruction): Admission and Anticipated Discharge Date Admission Date: April 08, 2025 Supervising Physician Co-Signing Physician Notes This patient was seen and examined with the surgical PA. I agree with this plan. Subjective Patient tolerating fulls without worsening symptoms. No n/v. Still with abdominal cramping. Questions about possibility of getting the parastomal hernia fixed Physical Exam Physical Exam: awake/alert, no distress Respiratory: normal respiratory effort Gastrointestinal (Abdomen): + ileostomy viable, + liquid stool and g as in bag. abdomen soft, but tender around parastomal hernia Results & Data Vital Signs (Past 12 Hours) Vital Signs Temp Pulse Resp BP Pulse Ox O2 Del Method 04/11/25 07:08 97.7 F 75 17 148/96 H 96 Room Air 04/10/25 23:32 79 137/67 04/10/25 23:19 97.7 F 73 18 90/58 L 93 Room Air PG Care Time/CCT Total # of Minutes Spent Total Time Spent with Patient: Total time spent is greater than 50% in coordination of care (as documented) at patient's floor/unit and/or counseling patient: Coding Level of Care Code 69060 SUB INP/OBS CARE 08/31MIN Diagnoses Parastomal hernia with obstruction and without gangrene K43.3 Obstruction and gangrene presence: with obstruction but without gangrene SBO (small bowel obstruction) K56.609 (1) Parastomal hernia Obstruction and gangrene presence: with obstruction but without gangrene Qualified Code(s): K43.3 - Parastomal hernia with obstruction, without gangrene
[2025-04-11] MEDS: SIMETHICONE 80 MG CHEW PO PRN (13:19)
[2025-04-11] MEDS: LACTATED RINGER'S 1,000 ML IV SCH (17:50)
--- NOTE | 2025-04-11 20:02 | XRay Report ---
Clinical history: Pain 4 views of the abdomen were obtained Findings: The bowel gas pattern appears unremarkable. No renal or ureteral calculi are seen. No foreign body is evident. No osseous abnormality is seen Impression: Unremarkable abdominal radiographs Electronically signed by Trevin Puckett 04-11-2025 8:00 PM
--- NOTE | 2025-04-11 22:47 | Hospitalist Progress Note ---
Date of Service April 11, 2025 Assessment & Plan (1) Small bowel obstruction: (2) Bipolar I disorder with depression: (3) Altered bowel elimination due to intestinal ostomy: Plan This is a 40 y/o M PMHx Hirschsprung disease w/ ileostomy placed age 9 who hx of 3 ostomy revisions and bipolar I disorder who is admitted for abdominal pain in the setting of nausea/vomiting due to small bowel obstruction due to parastomal hernia. Admission labs were unremarkable. 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 Patient does not have local surgeon he is following with, all [place]. Small bowel obstruction Advanced to low fiber diet by surgery but patient did not tolerate therefore switched back to clears at the end of the day Appreciate general surgery recommendations Avoid opiates, encourage ambulation Acetaminophen + Toradol only for pain, simethicone as needed for bloating #bipolar 1 disorder - mood has been stable - continue home psych meds - aripiprazole 10mg daily, bupropion 150mg daily, divalproex 750mg daily, hydroxyzine 50mg prn #GERD - Protonix 40mg IV daily - famotidine 20mg IV daily VTE Prophylaxis - Lovenox 40mg q12h (increased dose due to morbid obesity) Dispo - med/surg Admission and Anticipated Discharge Date Admission Date: April 08, 2025 Subjective Tolerated clears yesterday without worsening symptoms, surgery increase to low fiber today and patient felt worsening pains. XR KUB does not show obstruction therefore will place back on just clears. Physical Exam Gastrointestinal (Abdomen): Inspection/Auscultation: abdomen normal to inspection Percussion/Palpation: + abdomen tender (mild) and abdomen soft; no guarding and abdomen not rigid Results & Data Results & Data Vital Signs (Past 12 Hours) Vital Signs Temp Pulse Resp BP Pulse Ox O2 Del Method 04/11/25 22:18 36.6 C 76 14 138/72 98 Room Air 04/11/25 15:05 36.7 C 81 17 142/77 H 94 Room Air 04/11/25 12:22 36.5 C 82 17 139/79 95 Room Air PG Care Time/CCT Total # of Minutes Spent Total Time Spent with Patient: Total time spent is greater than 50% in coordination of care (as documented) at patient's floor/unit and/or counseling patient: Coding Level of Care Code 84251 SUB INP/OBS CARE MIN Diagnoses Small bowel obstruction K56.609 Bipolar I disorder with depression F31.9 Altered bowel elimination due to intestinal ostomy K94.19
--- NOTE | 2025-04-12 09:08 | Surgery Progress Note ---
Date of Service April 12, 2025 Assessment & Plan (1) Parastomal hernia: Plan: He is tolerating his clear liquids and has ostomy output Will advance him to full liquids for today and see how he tolerates this No plans for any exploration Surgery will follow (2) SBO (small bowel obstruction): Admission and Anticipated Discharge Date Admission Date: April 08, 2025 Subjective Patient seen and examined. Still with some crampy abdominal pain. His ostomy is functioning. Had a little bit of nausea this morning without emesis. Review of Systems Constitutional: no fever and no chills Respiratory: no cough and no dyspnea Cardiovascular: no chest pain and no dyspnea on exertion Gastrointestinal: + abdominal pain; no nausea, no vomiting and no constipation Genitourinary: no dysuria or no nocturia Integumentary: no acne and no sores Psychiatric: no behavioral changes and no depression Physical Exam Constitutional: WD/WN, vitals as above Eyes: PERRL, conjunctivae normal, anicteric sclerae Respiratory: normal respiratory effort, lungs clear to auscultation Cardiovascular: RRR, no murmur, no edema Gastrointestinal (Abdomen): Inspection/Auscultation: abdomen normal to inspection; abdomen not distended Percussion/Palpation: abdomen soft; abdomen nontender and no guarding Ostomy with liquid output, pink with slight prolapse Musculoskeletal: no cyanosis or clubbing, extremities motor strength 5/5 Psychiatric: A+Ox3, euthymic affect Results & Data Vital Signs (Past 12 Hours) Vital Signs Temp Pulse Resp BP Pulse Ox O2 Del Method 04/12/25 07:05 36.5 C 79 17 124/75 93 Room Air 04/11/25 22:18 36.6 C 76 14 138/72 98 Room Air PG Care Time/CCT Total # of Minutes Spent Total Time Spent with Patient: Total time spent is greater than 50% in coordination of care (as documented) at patient's floor/unit and/or counseling patient: Coding Level of Care Code 61046 SUB INP/OBS CARE 08/31MIN Diagnoses Parastomal hernia with obstruction and without gangrene K43.3 Obstruction and gangrene presence: with obstruction but without gangrene SBO (small bowel obstruction) K56.609 (1) Parastomal hernia Obstruction and gangrene presence: with obstruction but without gangrene Qualified Code(s): K43.3 - Parastomal hernia with obstruction, without gangrene
--- NOTE | 2025-04-12 16:03 | Hospitalist Progress Note ---
Date of Service April 12, 2025 Assessment & Plan (1) Small bowel obstruction: (2) Bipolar I disorder with depression: (3) Altered bowel elimination due to intestinal ostomy: Plan This is a 40 y/o M PMHx Hirschsprung disease w/ ileostomy placed age 9 who hx of 3 ostomy revisions and bipolar I disorder who is admitted for abdominal pain in the setting of nausea/vomiting due to small bowel obstruction due to parastomal hernia. Admission labs were unremarkable. 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 Patient does not have local surgeon he is following with, all previous surgeries [place] of state. Small bowel obstruction Advanced to full liquid diet by surgery, if tolerates will advance to low fiber tomorrow Appreciate general surgery recommendations Avoid opiates, encourage ambulation Acetaminophen + Toradol only for pain, simethicone as needed for bloating #bipolar 1 disorder - mood has been stable - continue home psych meds - aripiprazole 10mg daily, bupropion 150mg daily, divalproex 750mg daily, hydroxyzine 50mg prn #GERD - Protonix 40mg IV daily - famotidine 20mg IV daily VTE Prophylaxis - Lovenox 40mg q12h (increased dose due to morbid obesity) Dispo - med/surg Admission and Anticipated Discharge Date Admission Date: April 08, 2025 Subjective Did not tolerate low fiber diet last night but he thinks he just ate too much too soon. Doing well on full liquid diet today. Less cramping pain. No nausea/vomiting. Physical Exam Gastrointestinal (Abdomen): Inspection/Auscultation: + abdomen abnormal to inspection (ostomy with liquid output) and abdomen not distended Percussion/Palpation: abdomen soft; abdomen nontender Results & Data Results & Data Vital Signs (Past 12 Hours) Vital Signs Temp Pulse Resp BP Pulse Ox O2 Del Method 04/12/25 14:40 36.8 C 105 H 16 143/91 H 96 Room Air 04/12/25 07:05 36.5 C 79 17 124/75 93 Room Air PG Care Time/CCT Total # of Minutes Spent Total Time Spent with Patient: Total time spent is greater than 50% in coordination of care (as documented) at patient's floor/unit and/or counseling patient: Coding Level of Care Code 78961 SUB INP/OBS CARE 2/35MIN Diagnoses Small bowel obstruction K56.609 Bipolar I disorder with depression F31.9 Altered bowel elimination due to intestinal ostomy K94.19
[2025-04-13] MEDS: FAMOTIDINE 20 MG TAB PO SCH (08:04)
--- NOTE | 2025-04-13 09:01 | Surgery Progress Note ---
Date of Service April 13, 2025 Assessment & Plan (1) Parastomal hernia: Plan: Advance to a low fiber diet No plans for any surgical intervention If he tolerates his diet he will be stable for discharge from a surgical standpoint Surgical sign off at this time, please call with any questions or concerns (2) SBO (small bowel obstruction): Admission and Anticipated Discharge Date Admission Date: April 08, 2025 Subjective Patient seen and examined. Abdominal pain much improved. Still has ostomy output. Has tolerated the full liquids. Afebrile. Review of Systems Constitutional: no fever and no chills Respiratory: no cough and no dyspnea Cardiovascular: no chest pain and no dyspnea on exertion Gastrointestinal: + abdominal pain; no nausea, no vomiting and no constipation Genitourinary: no dysuria or no nocturia Integumentary: no acne and no sores Psychiatric: no behavioral changes and no depression Physical Exam Constitutional: WD/WN, vitals as above Eyes: PERRL, conjunctivae normal, anicteric sclerae Respiratory: normal respiratory effort, lungs clear to auscultation Cardiovascular: RRR, no murmur, no edema Gastrointestinal (Abdomen): Inspection/Auscultation: abdomen normal to inspection; abdomen not distended Percussion/Palpation: abdomen soft; abdomen nontender and no guarding Ostomy with liquid output, pink with slight prolapse Musculoskeletal: no cyanosis or clubbing, extremities motor strength 5/5 Psychiatric: A+Ox3, euthymic affect Results & Data Vital Signs (Past 12 Hours) Vital Signs Temp Pulse Resp BP Pulse Ox O2 Del Method 04/13/25 07:49 36.9 C 78 16 130/84 95 Room Air 04/12/25 22:51 36.5 C 76 19 110/63 93 Room Air PG Care Time/CCT Total # of Minutes Spent Total Time Spent with Patient: Total time spent is greater than 50% in coordination of care (as documented) at patient's floor/unit and/or counseling patient: Coding Level of Care Code 87138 SUB INP/OBS CARE 08/31MIN Diagnoses Parastomal hernia with obstruction and without gangrene K43.3 Obstruction and gangrene presence: with obstruction but without gangrene SBO (small bowel obstruction) K56.609 (1) Parastomal hernia Obstruction and gangrene presence: with obstruction but without gangrene Qualified Code(s): K43.3 - Parastomal hernia with obstruction, without gangrene
--- NOTE | 2025-04-13 18:22 | Hospitalist Progress Note ---
Date of Service April 13, 2025 Assessment & Plan (1) Small bowel obstruction: (2) Bipolar I disorder with depression: (3) Altered bowel elimination due to intestinal ostomy: Plan This is a 40 y/o M PMHx Hirschsprung disease w/ ileostomy placed age 9 who hx of 3 ostomy revisions and bipolar I disorder who is admitted for abdominal pain in the setting of nausea/vomiting due to small bowel obstruction due to parastomal hernia. Admission labs were unremarkable. 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 Patient does not have local surgeon he is following with, all previous [place] of state. Small bowel obstruction Tolerating low fiber diet, cautious discharge as abdominal pain returned previously after low fiber diet therefore will observe overnight and as long as he is doing well tomorrow morning plan for discharge then Appreciate general surgery recommendations Avoid opiates, encourage ambulation Acetaminophen + Toradol only for pain, simethicone as needed for bloating #bipolar 1 disorder - mood has been stable - continue home psych meds - aripiprazole 10mg daily, bupropion 150mg daily, divalproex 750mg daily, hydroxyzine 50mg prn #GERD - Protonix 40mg IV daily - famotidine 20mg IV daily VTE Prophylaxis - Lovenox 40mg q12h (increased dose due to morbid obesity) Dispo - med/surg Admission and Anticipated Discharge Date Admission Date: April 08, 2025 Subjective Abdominal pain improved, tolerating low fiber diet so far but given pain returned on Monday after this he is obviously cautious to go home as he is concerned about the pain returning. Physical Exam Respiratory: normal respiratory effort, lungs clear to auscultation Cardiovascular: RRR, no murmur, no edema Gastrointestinal (Abdomen): normal bowel sounds, soft, nontender, no hepatosplenomegaly Inspection/Auscultation: + abdomen abnormal to inspection (ostomy with liquid output) and abdomen not distended Percussion/Palpation: abdomen soft; abdomen nontender, no guarding and abdomen not rigid Results & Data Results & Data Vital Signs (Past 12 Hours) Vital Signs Temp Pulse Resp BP Pulse Ox O2 Del Method 04/13/25 14:54 36.8 C 70 18 144/85 H 95 Room Air 04/13/25 07:49 36.9 C 78 16 130/84 95 Room Air PG Care Time/CCT Total # of Minutes Spent Total Time Spent with Patient: Total time spent is greater than 50% in coordination of care (as documented) at patient's floor/unit and/or counseling patient: Coding Level of Care Code 58663 SUB INP/OBS CARE 2/35MIN Diagnoses Small bowel obstruction K56.609 Bipolar I disorder with depression F31.9 Altered bowel elimination due to intestinal ostomy K94.19
[2025-04-13 20:02] VITALS: TEMP 97.7
[2025-04-14 07:22] VITALS: RESP 18; O2SAT 95
--- NOTE | 2025-04-14 09:18 | Discharge Summary ---
Discharge Summary Date of Service April 14, 2025 Principal Dx & Hospital Course #1 = Principal Diagnosis (1) Small bowel obstruction: (2) Bipolar I disorder with depression: (3) Altered bowel elimination due to intestinal ostomy: Plan Slava Martinez is a 40 year old male admitted to [facility] from April 08 - 2024 due to abdominal pain. He was diagnosed with small bowel obstruction on CT secondary to parastomal hernia and adhesions. You were treated conservatively with reduction in diet and intravenous fluids. You are now tolerating a low fiber diet and medically stable for discharge. If you wish to look into repair of your parastomal hernia recommend evaluation by your previous surgeons are seeking care from a tertiary care colorectal surgery such as [facility]. Admission HPI Per Admitting Provider Slava Martinez is a 40 y/o M PMHx Hirschsprung disease w/ ileostomy placed at age 9 and bipolar I disorder who presented to [facility] for evaluation of cramp-like abdominal pain associated with nausea and vomiting. States the pain started this morning and has progressively worsened throughout the day. Rating pain 8/10 at first onset, now improved to 6/10. Located mostly mid-abdominal/around umbilicus and denies radiation. Patient also notes changes to ostomy output, reporting now watery output which is different from baseline of thick/solid. Last oral intake was last night. Last vomiting episode was about 4-5 hours ago. States his nausea has been coming in waves since arrival. Of note, patient has had 3 revisions of his ileostomy, all done at [facility] in [place], [place]. ED labs showing CBC and BMP wnl. 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 Patient is being admitted for cramp-like abdominal pain associated with nausea/vomiting in the setting of SBO due to parastomal hernia. Discharge Plan Discharge Items Patient Disposition: Home - Self-Care Reason For Visit: NAUSEA/VOMITING/ABDOMINAL PAIN Discharge Diagnosis: Small bowel obstruction Condition on Discharge: Fair Activity: Resume your previous activity Non-emergency contact: Primary Care Provider Call non-emergency contact if: you have any medication questions and your symptoms worsen Follow-up/Referrals: Bart Freeman PA-C [Primary Care Provider] - 04/24/25 11:00 am Diet: Low Fiber Addtl Attending Provider Instructions: You were admitted to [facility] from April 08 - 2024 due to abdominal pain. You were diagnosed with small bowel obstruction secondary to parastomal hernia and adhesions. You were treated conservatively with reduction in diet and intravenous fluids. You are now tolerating a low fiber diet and medically stable for discharge. If you wish to look into repair of your parastomal hernia recommend evaluation by your previous surgeons are seeking care from a tertiary care colorectal surgery such as [facility]. Pending Studies at Discharge: No Stand-Alone Forms: My [facility], Smoking Cessation Medications and DC Order Prescriptions: Continued famotidine 20 mg tablet 20 mg PO DAILY pantoprazole 40 mg tablet,delayed release (DR/EC) 40 mg PO DAILY aripiprazole 10 mg tablet 10 mg PO DAILY divalproex 250 mg Tablet,Delayed Release (Dr/Ec) 250 mg PO HS Qty: 30 0RF divalproex 500 mg Tablet,Delayed Release (Dr/Ec) 500 mg PO BID Qty: 60 0RF bupropion HCl 75 mg Tablet 150 mg PO DAILY Qty: 60 0RF hydroxyzine HCl 50 mg tablet 50 mg PO DAILY PRN (Reason: anxiety, insomnia) Qty: 30 0RF valacyclovir 1 gram tablet 1,000 mg PO DAILY Discharge Orders: Discharge Order (Routine); Ordered 04/14/25 Ordered By: Jaziel Ritchie Admission Data Admit Date/Time: 04/08/25 21:33 Attending Provider: Jaziel Ritchie Admit Provider: Kecia Luna Primary Care Provider: Bart Freeman Other Providers: Shara Reddy Other Interventions: Discharge Summary Assessment (RN) Last Done: 04/14/25 13:16 Hospital Stay Data Consultations 04/08/25 20:19 ED Decision to Admit Stat Diagnostic Imagining Performed 04/08/25 18:21 CT abd pelvis IV con only Stat Pending Results Patient Have Any Pending Studies at Discharge: No Discharge Instructions Given to Patient (Per Discharging Provider) You were admitted to [facility] from April 08 - 2024 due to abdominal pain. You were diagnosed with small bowel obstruction secondary to parastomal hernia and adhesions. You were treated conservatively with reduction in diet and intravenous fluids. You are now tolerating a low fiber diet and medically stable for discharge. If you wish to look into repair of your parastomal hernia recommend evaluation by your previous surgeons are seeking care from a tertiary care colorectal surgery such as [facility]. Coding Diagnoses Small bowel obstruction K56.609 Bipolar I disorder with depression F31.9 Altered bowel elimination due to intestinal ostomy K94.19
[2025-04-14 13:19] VITALS: BP 141/83; PULSE 90
== END 2025-04-14 15:05 | disposition home or self-care (01) | DRG 394 ==
LOC: ED 17:56 → SUATTDRO 21:33 → EDINP 21:33 → 3N 23:03